=== PATIENT | female | born 1945 | race American Indian/Alaskan Native ===

== ENCOUNTER 2016-11-26 15:21 | Outpatient (CLI) | payer MEDICARE ==
--- NOTE | 2016-11-26 16:44 | Ultrasound Report ---
ULTRASOUND RENAL INDICATION: Renal mass. COMPARISON: None similar. FINDINGS: Renal sonography suggests mild to moderately increased renal cortical echogenicity. Grossly preserved contours. No hydronephrosis. Shadowing gallstones incidentally noted. RIGHT KIDNEY measures 13.9 x 5.8 x 5.3 cm with cortical thickness of 1.3 cm. Two dominant cysts measure 6.2 x 4.8 cm at the upper pole and 6.6 x 5.2 cm at the lower pole, images 21 and 26. LEFT KIDNEY estimated at 19.7 x 5.5 x 5.1 cm (including largest lower pole cyst measuring 9.9 x 8.2 x 11.2 cm, image 53) with cortical thickness of 0.6 cm. At least 3 other smaller upper to mid renal cortical cysts range between 1.3-3.6 cm. URINARY BLADDER suboptimally distended and assessed. CONCLUSION: Mild underlying medical renal disease, numerous bilateral renal cysts and cholelithiasis noted sonographically, as detailed above. Please also correlate clinically and with prior relevant imaging, if available. Thank you for the opportunity to participate in this patient's care.
== END 2016-11-26 15:22 | disposition home or self-care (01) ==
LOC: US 15:21
PROVIDERS: ATTEND Urology
DX: K80.20 Calculus of gallbladder without cholecystitis without obstruction (principal); N28.1 Cyst of kidney, acquired; N28.89 Other specified disorders of kidney and ureter; I12.9 Hypertensive chronic kidney disease with stage 1 through stage 4 chronic kidney disease, or unspecified chronic kidney disease; N18.9 Chronic kidney disease, unspecified; D63.1 Anemia in chronic kidney disease; E78.00 Pure hypercholesterolemia, unspecified
CPT/HCPCS: 76770

== ENCOUNTER 2017-01-12 09:37 | Outpatient (CLI) | payer MEDICARE ==
--- NOTE | 2017-01-12 14:04 | Magnetic Resonance Report ---
MRI of the abdomen without contrast. History: Renal mass. Procedure: A multisequence multiplanar study was performed without contrast. Findings: Image quality is decreased substantially by motion artifact on multiple sequences. The study is read with these limitations. There are tiny bilateral pleural effusions. The liver, spleen, and pancreas appear normal. There are multiple bilateral cystic masses within the kidneys, the largest of which is in the lower pole of the left kidney measuring 9.5 x 11.4 cm. Numerous smaller cystic masses are seen bilaterally. A complex cystic mass in the upper pole of the right kidney measuring 7.0 cm in diameter demonstrates hyperintense T1 signal most likely related to hemorrhagic cyst. There is a complex mixed signal mass in the lower pole of the right kidney. This mass measures approximately 7.1 x 5.6 cm and demonstrates mixed signal on all sequences. There is a peripheral lobulation medially. The renal veins are patent. There is no adenopathy within the retroperitoneum. Impression: 1. Indeterminate complex renal mass in the lower pole of the right kidney measuring 7.1 x 5.6 cm. A neoplastic process cannot be excluded. 2. Complex cystic mass in the upper pole of the right kidney demonstrates homogeneous signal and probably represents a hemorrhagic cyst. 3. Multiple bilateral simple renal cysts the largest of which is in the lower pole of the left kidney. 4. Trace bilateral pleural effusions.
== END 2017-01-12 09:38 | disposition home or self-care (01) ==
LOC: MRI 09:37
PROVIDERS: ATTEND Urology
DX: N28.1 Cyst of kidney, acquired (principal); N28.89 Other specified disorders of kidney and ureter; J90 Pleural effusion, not elsewhere classified; I10 Essential (primary) hypertension; E78.00 Pure hypercholesterolemia, unspecified; D64.9 Anemia, unspecified
CPT/HCPCS: 74181

== ENCOUNTER 2017-07-04 05:53 | Inpatient (IN) | payer MEDICARE ==
[2017-06-24 12:39] LABS: Hematocrit 37.2 % (30.3-42.9); Hemoglobin 11.9 gm/dl (10.1-14.3); Mean Corpuscular HGB Conc 32 % (30-34); Mean Corpuscular Hemoglobin 29 pg (28-32); Mean Corpuscular Volume 92 fl (79-97); Platelet Count 269 K/mm3 (140-440); Red Blood Count 4.06 M/mm3 (3.65-5.03); Red Cell Distribution Width 17.2 % (13.2-15.2)
[2017-06-24 12:43] LABS: INR 0.99 (0.87-1.13)
[2017-06-24 12:44] LABS: Partial Thromboplastin Time 32.6 Sec. (24.2-36.6)
[2017-06-24 12:55] LABS: Calcium 9.4 mg/dL (8.4-10.2)
--- NOTE | 2017-06-24 12:56 | Anesthesia Consultation ---
Anesthesia Consult and Med Hx Date of service: 07/04/17 - Airway Anesthetic Teeth Evaluation: Dentures ROM Head & Neck: Adequate Mental/Hyoid Distance: Adequate Mallampati Class: Class III Intubation Access Assessment: Probably Good - Pulmonary Exam CTA: Yes - Cardiac Exam Cardiac Exam: RRR - Pre-Operative Health Status ASA Pre-Surgery Classification: ASA3 Proposed Anesthetic Plan: General Nerve Block: patient consented for TAP/ epidural - Pulmonary Hx Smoking: No Hx Asthma: No SOB: No Hx Sleep Apnea: No (CHALO PRE SCREEN HIGH RISK) - Cardiovascular System Hx Hypertension: Yes (X 24 YRS) Hx Angina: No - Central Nervous System Hx Neuromuscular Disorder: No - Gastrointestinal Hx Gastroesophageal Reflux Disease: Yes - Endocrine Hx Renal Disease: Yes (CKD. no HD. right kidney cancer) Hx Insulin Dependent Diabetes: No Hx Hypothyroidism: Yes (s/p thyroidectomy) - Hematic Hx Anemia: Yes - Other Systems Hx Cancer: No Hx Obesity: Yes - Additional Comments Anesthesia Medical History Comments: h/o gout- arthritis. cardiac clearance appreciated
[2017-06-24 13:21] LABS: Basophils % (Manual) 0 % (0.0-1.8); RBC Morphology Normal; Total Cells Counted 100
[2017-06-24 13:22] LABS: Platelet Estimate Consistent w Auto
[~2017-07-04 05:53] MED LIST: NACL 0.9% 500 ML 500 ML IV NR
[2017-07-04] MEDS ORDERED: NACL 0.9% 1000 ML 1,000 ML ONE ×2 (06:32→10:35)
[2017-07-04] MEDS ORDERED: NACL BACTERIOSTATIC INFILTRATI ONE (06:32)
[2017-07-04] MEDS ORDERED: NACL 0.9% 1000 ML 1,000 ML IV SCH (07:00)
[2017-07-04] MEDS ORDERED: DIPRIVAN 10 MG/ML IV ONE (07:02)
[2017-07-04] MEDS ORDERED: SUBLIMAZE ONE ×2 (07:02→10:57)
[2017-07-04 07:11] LABS: Hematocrit 35.6 % (30.3-42.9); Hemoglobin 11.3 gm/dl (10.1-14.3); Mean Corpuscular HGB Conc 32 % (30-34); Mean Corpuscular Hemoglobin 29 pg (28-32); Mean Corpuscular Volume 91 fl (79-97); Platelet Count 252 K/mm3 (140-440); Red Cell Distribution Width 17.4 % (13.2-15.2)
[2017-07-04] MEDS ORDERED: VERSED ONE (07:25)
[2017-07-04] MEDS ORDERED: NEOSPORIN GU IR ONE ×2 (07:42→09:47)
[2017-07-04] MEDS ORDERED: TRANSDERM-SCOP TD ONE (07:46)
[2017-07-04] MEDS ORDERED: PEPCID IV NR (08:00)
[2017-07-04] MEDS ORDERED: VERSED IV NR (08:00)
[2017-07-04 08:11] LABS: Anisocytosis 1+; Basophils % (Manual) 0 % (0.0-1.8); Total Cells Counted 100
[2017-07-04 08:12] LABS: Platelet Estimate Cons; Smudge Cells Few
[2017-07-04] MEDS ORDERED: ACD-A 500 ML IV ONE (08:30)
[2017-07-04] MEDS ORDERED: ePHEDrine SULFATE ONE (08:32)
[2017-07-04] MEDS ORDERED: ANCEF/STERILE WATER 2 GM/20 ML IV NR (09:00)
[2017-07-04] MEDS ORDERED: NACL 0.9% IR ONE (09:48)
[2017-07-04] MEDS ORDERED: ALBURX 25% (ALBUMIN) IV ONE (10:08)
[2017-07-04] MEDS ORDERED: NEO SYNEPHRINE ONE (10:35)
[2017-07-04] MEDS ORDERED: NEO SYNEPHRINE/NS Syringe(OR USE) IV ONE (10:35)
[2017-07-04] MEDS ORDERED: LACTATED RINGERS 1,000 ML ONE (10:35)
[2017-07-04] MEDS ORDERED: XYLOCAINE MPF 2% ONE (10:35)
[2017-07-04] MEDS ORDERED: NACL 0.9% 100 ML ONE (10:35)
[2017-07-04] MEDS ORDERED: ZOFRAN ONE (10:35)
[2017-07-04] MEDS ORDERED: ROBINUL ONE (10:35)
[2017-07-04] MEDS ORDERED: BLOXIVERZ ONE (10:35)
[2017-07-04] MEDS ORDERED: QUELICIN ONE (10:35)
[2017-07-04] MEDS ORDERED: ZEMURON IV ONE (10:35)
[2017-07-04] MEDS ORDERED: NARCAN 0.4 MG/1 ML IV PRN ×2 (11:05→11:49)
[2017-07-04] MEDS ORDERED: NORCO 5/325 PO PRN (11:05)
--- NOTE | 2017-07-04 11:05 | Post Operative Note ---
Date of procedure: 07/04/17 Pre-op diagnosis: r renal mass Post-op diagnosis: same Findings: 8 cm mass Procedure: r radical nephrectomy Anesthesia: GETA, regional Surgeon: REYNOLD ISLAS Packaging Engineer: JEREMI HART Estimated blood loss: 50-100ml Pathology: list (r kidney) Specimen disposition: to lab Condition: stable Disposition: PACU
[2017-07-04] MEDS ORDERED: MARCAINE 0.25% INFILTRATI ONE (11:41)
[2017-07-04] MEDS ORDERED: DILAUDID ONE ×2 (11:46→12:38)
[2017-07-04] MEDS ORDERED: SODIUM CHLORIDE FLUSH SYRINGE 10 ML IV PRN (11:49)
[2017-07-04] MEDS ORDERED: ANCEF/NS 1 GM/50 ML 1 GM/50 ML BAG IV SCH (12:00)
--- NOTE | 2017-07-04 12:02 | Consultation ---
History of Present Illness - Reason for Consult Consult date: 07/04/17 chronic renal failure Requesting physician: REYNOLD ISLAS - History of Present Illness This is a 71 y/o female with PMH of chronic kidney disease (baseline stage unknown, but labs from 06/24/17 showed SCr of 2.9 with GFR of 19 and if close to her baseline would have her CKD Stage 4), right renal mass, bilateral simple renal cyst, cholelithiasis, hypertension, hypothyroidism, gout, hyperlipidemia who presented to [facility] for management of right renal mass. Dr Bassett (Urology) on board, s/p right radical nephrectomy today. Patient seen in recovery room, lethargic, drowsy, but arouses to verbal stimuli, oriented to person, place, and time. Last known SCr level was 2.9 on 06/24/17. We were consulted to evaluate this patient who has h/o CKD with right renal mass s/p right radical nephrectomy. Patient states she does have a manager action, sounded like she mentioned Dr Holly and when I stated his name she said yes. I called her daughter to confirm and she didn't know name of her manager action. We will see patient for now, evaluate if she is indeed followed by Dr Holly, and proceed from there. Past History Past Medical History: cancer, hypertension, hypothyroidism Medications and Allergies Allergies Allergy/AdvReac Type Severity Reaction Status Date / Time Sulfa (Sulfonamide Allergy BLISTERS , Verified 07/04/17 11:45 Antibiotics) REDNESS Home Medications Medication Instructions Recorded Confirmed Last Taken Type Allopurinol [Zyloprim] 100 mg PO DAILY 09/03/13 06/13/17 07/03/17 History Aspirin [Aspirin BABY CHEW TAB] 81 mg PO DAILY 09/03/13 07/04/17 7 Days Ago History ~06/27/17 Cholecalciferol (Vitamin D3) 2,000 unit PO DAILY 09/03/13 06/13/17 07/03/17 History [Vitamin D3] Lisinopril [Zestril] 40 mg PO DAILY 09/03/13 06/13/17 07/03/17 History Metoprolol [Lopressor TAB] 100 mg PO DAILY 09/03/13 06/13/17 07/04/17 05:00 History Simvastatin 20 mg PO DAILY 09/03/13 06/13/1707/03/18 History Sodium Bicarbonate 650 mg PO BID 09/03/13 06/13/17 07/03/17 History Furosemide [Lasix TAB] 40 mg PO DAILY 06/13/17 06/13/17 07/03/17 History Levothyroxine [Synthroid] 150 mcg PO QAM 06/13/17 06/13/17 07/04/17 05:00 History NIFEdipine [Nifedipine ER] 60 mg PO BID 06/13/17 06/13/17 07/04/17 05:00 History Doxercalciferol 2.5 mcg PO DAILY 07/04/17 07/04/17 07/03/17 History Ranitidine HCl [Zantac 150 MG TAB] 150 mg PO DAILY 07/04/17 07/04/17 07/03/17 History Active Meds: Active Medications Acetaminophen/Hydrocodone Bitart ([place] 5/325) 2 each PO Q6H PRN PRN Reason: Pain, Moderate (4-6) Cefazolin Sodium (Ancef/Sterile Water 2 Gm/20 Ml) 2 gm IV PREOP NR Stop: 07/04/17 21:00 Famotidine (Pepcid) 20 mg IV PREOP NR Stop: 07/04/17 21:00 Last Admin: 07/04/17 07:49 Dose: 20 mg Sodium Chloride (Nacl 0.9% 1000 Ml) 1,000 mls @ 42 mls/hr IV DIRECT CLARENCE Last Admin: 07/04/17 07:10 Dose: 42 mls/hr Dextrose/Sodium Chloride (D5/0.45ns) 1,000 mls @ 75 mls/hr IV DIRECT CLARENCE Cefazolin Sodium 1 gm/ Sodium (Chloride) 20 mls @ 20 mls/10 min IV Q8H CLARENCE Stop: 07/05/17 01:09 Fentanyl/Bupivacaine/Sodium Chlor (Fentanyl-Bupiv 2 Mcg/Ml-0.125%) 200 mcg in 100 mls @ 8 mls/hr EPIDURAL DIRECT CLARENCE PRN Reason: Protocol Midazolam HCl (Versed) 2 mg IV PREOP NR Stop: 07/04/17 23:59 Last Admin: 07/04/17 07:28 Dose: 2 mg Naloxone HCl (Narcan 0.4 Mg/1 Ml) 0.1 mg IV Q2MIN PRN PRN Reason: Res Rate </= 8 or 02 SAT < 92% Naloxone HCl (Narcan 0.4 Mg/1 Ml) 0.2 mg IV Q5M PRN PRN Reason: Res Rate </= 8 or 02 SAT < 92% Sodium Chloride (Sodium Chloride Flush Syringe 10 Ml) 10 ml IV PRN PRN PRN Reason: LINE FLUSH Review of Systems ROS unobtainable: due to mental status Exam - Vital Signs Vital signs: Vital Signs Temp Pulse Resp BP 98.8 F 60 18 150/84 06/24/17 12:26 06/24/17 12:26 06/24/17 12:26 06/24/17 12:26 - General Appearance General appearance: other (lethargic, no acute distress, seen in recovery room) EENT: ATNC Neck: Present: neck supple Respiratory: Other (Lung sounds decreased bilaterally, unlabored on oxygen face mask) Heart: regular, S1S2 Gastrointestinal: Present: hypoactive bowel sounds, tenderness Integumentary: warm and dry (Right abdominal/flank dressing in place) Neurologic: other (lethargic, drowsy, in recovery room, arouses to verbal stimuli, oriented to person, place, and time) Musculoskeletal: Present: other (no edema to both lower extremities) Results - Lab Results 07/04/17 12:08 06/24/17 12:28 Most recent lab results Calcium 9.4 mg/dL (8.4-10.2) 06/24/17 12:28 Assessment and Plan Right Renal Mass: -S/p Right Radical Nephrectomy procedure on 07/04/[address] Islas -On cefazolin -As per Urology History of Chronic Kidney Disease suspect Stage 4 (based on lab from 06/24/17): Right Renal Mass: -BMP pending today -Only available BMP was from 06/24/17 which showed SCr level of 2.9 with GFR of 19 -Obtain renal labs now, f/u labs and adjust renal management accordingly -Discussed with patient that we will have to monitor her renal function very closely, possible need for initiation of dialysis in the near future s/p right radical nephrectomy in setting of underlying CKD Stage 4 -> based on labs from , but will evaluate previous labs to determine exact baseline. Patient is drowsy s/p procedure, will discuss further renal management once patient is more alert and labs are resulted. Possibility patient may require HD during this hospitalization if renal function worsens. -Renally dose medications -Obtain urine lytes/studies -Has orders for D5W+ 0.45% NS infusion at 75 ml/hr, will f/u repeat labs, and adjust IV fluids if needed -S/p Right Radical Nephrectomy procedure on 07/04/17 -Obtain daily weight -Strict intake and output -Gonzalez Catheter: Yes -Renal plan discussed with Dr Mcrae -Continue supportive therapy Essential Hypertension: -Monitor blood pressures closely, blood pressure currently in low 100s systolic , hold off on anti-hypertensive medications for now -Home medication list shows patient takes lisinopril 40 mg once daily- This medication doesn't need to be restarted inpatient or outpatient at this time given increased risk of worsening renal function Hypothyroidism: -As per primary team
[2017-07-04 12:31] LABS: Basophils # (Auto) 0.1 K/mm3 (0.0-0.1); Basophils % (Auto) 0.5 % (0.0-1.8); Eosinophils # (Auto) 0.1 K/mm3 (0.0-0.4); Eosinophils % (Auto) 0.8 % (0.0-4.3); Hematocrit 30.4 % (30.3-42.9); Hemoglobin 9.8 gm/dl (10.1-14.3); Lymphocytes # (Auto) 3.6 K/mm3 (1.2-5.4); Lymphocytes % (Auto) 28.1 % (13.4-35.0); Mean Corpuscular HGB Conc 32 % (30-34); Mean Corpuscular Hemoglobin 30 pg (28-32); Mean Corpuscular Volume 92 fl (79-97); Monocytes # (Auto) 0.6 K/mm3 (0.0-0.8); Monocytes % (Auto) 4.7 % (0.0-7.3); Platelet Count 205 K/mm3 (140-440); Red Blood Count 3.31 M/mm3 (3.65-5.03); Red Cell Distribution Width 17.5 % (13.2-15.2)
[2017-07-04 12:54] LABS: Calcium 7.8 mg/dL (8.4-10.2)
[2017-07-04] MEDS: fentaNYL-BUPIV 2 MCG/ML-0.125% 200 MCG/100 ML BAG EPIDURAL SCH (12:55)
[2017-07-04 14:30] LABS: Creatinine,Urine 163.6 mg/dL (0.1-20.0)
--- NOTE | 2017-07-04 14:32 | Anesthesia Day of Surgery ---
Anesthesia Day of Surgery - Day of Surgery Patient Examined: Yes Patient H&P Reviewed: Yes Patient is NPO: Yes Beta Blockers: Yes
--- NOTE | 2017-07-04 14:32 | Post Anesthesia Evaluation ---
- Post Anesthesia Evaluation Patient Participated: Yes Airway Patent: Yes Stable Respiratory Function: Yes Nausea/Vomiting: No Temp > 96.8F: Yes Pain Manageable: Yes Adequeate Hydration: Yes Anesthesia Complications: No
[2017-07-04] MEDS: ceFAZolin 1 GM in NACL 0.9% 20 ML IV SCH (17:18)
[2017-07-04] MEDS: D5/0.45NS 1,000 ML IV SCH (18:05)
[2017-07-04] MEDS: DILAUDID IV PRN (19:20)
[2017-07-05] MEDS: fentaNYL-BUPIV 2 MCG/ML-0.125% 200 MCG/100 ML BAG EPIDURAL SCH ×2 (01:08→12:30)
[2017-07-05] MEDS: ceFAZolin 1 GM in NACL 0.9% 20 ML IV SCH (01:23)
[2017-07-05] MEDS ORDERED: ZOFRAN ONE (05:49)
[2017-07-05] MEDS ORDERED: ZOFRAN IV ONE (05:52)
[2017-07-05 05:58] LABS: Basophils % (Auto) 0.4 % (0.0-1.8); Eosinophils # (Auto) 0.1 K/mm3 (0.0-0.4); Eosinophils % (Auto) 0.4 % (0.0-4.3); Hematocrit 31.3 % (30.3-42.9); Hemoglobin 9.9 gm/dl (10.1-14.3); Lymphocytes # (Auto) 3.3 K/mm3 (1.2-5.4); Lymphocytes % (Auto) 27.1 % (13.4-35.0); Mean Corpuscular HGB Conc 32 % (30-34); Mean Corpuscular Hemoglobin 29 pg (28-32); Mean Corpuscular Volume 93 fl (79-97); Monocytes # (Auto) 0.8 K/mm3 (0.0-0.8); Monocytes % (Auto) 6.9 % (0.0-7.3); Platelet Count 199 K/mm3 (140-440); Red Blood Count 3.36 M/mm3 (3.65-5.03); Red Cell Distribution Width 17.8 % (13.2-15.2)
[2017-07-05 06:21] LABS: Calcium 7.9 mg/dL (8.4-10.2)
[2017-07-05] MEDS: D5/0.45NS 1,000 ML IV SCH ×2 (06:33→19:38)
--- NOTE | 2017-07-05 08:43 | Operative Report ---
PREOPERATIVE DIAGNOSES: Large right renal mass with chronic renal insufficiency, heart disease, multiple bilateral large renal cysts. POSTOPERATIVE DIAGNOSES: Large right renal mass with chronic renal insufficiency, heart disease, multiple bilateral large renal cysts. PROCEDURE: Right radical nephrectomy. SURGEON: John Agarwal M.D. and Dr. Grajeda. ANESTHESIA: General and epidural. FINDINGS: This is a woman with multiple medical problems, thyroid issues, gallstones, renal insufficiency, heart disease. She presents with an 8 cm renal mass. She was scheduled multiple times. She had canceled the surgery. She finally wanted the tumor out. She understood all the risks and even before surgery, I had a long talk with her daughter about the increased risks of dialysis postoperatively. They did not remember which plasma specialist they saw. I spoke to a few and she will see them postoperatively. Her left kidney is smaller, creatinine is 2.8-2.9 and there is a high likelihood she will need dialysis even without the nephrectomy, but certainly postoperatively that may very well be required. They understand they wanted tumor out. DESCRIPTION OF PROCEDURE: The patient was brought to the operating room and placed on the operating table. Following induction of anesthesia, both General and epidural right flank, which was marked up, prepped and draped in usual sterile fashion. A ____ incision was carried out, carried through the skin, superficial fatty tissue. She is also morbidly obese. Once we got down to the posterior lumbar muscles, these were divided. The external and internal oblique muscle and fascia were divided. Transversus was divided. Retroperitoneal was entered. We dissected the kidney off the psoas muscle, but there was a large amount of fatty tissue. There was a large cyst, especially in the right upper pole. We decided to open the peritoneum, placed a retractor and we were able to reflect the colon off the adherent cystic masses, especially superiorly. Once this was reflected, the ureter was identified, lower pole was freed. The large upper pole cyst was drained. There was some hemorrhagic fluid, which was drained. At this point, circumferential dissection was carried out. Again, it was adherent with some of these hemorrhagic cysts were noted. The lower pole mass which was a solid mass was freed and the vessels were ____ superior and medial. We kocherized the duodenum without difficulty. The duodenum was visualized and we dissected up to the renal vein. The artery was just above the vein, isolated, doubly tied, doubly clipped and the vein was divided and doubly tied. The patient tolerated the procedure well. Tisseel was used. Specimen was removed. Surgicel was used. Wound was copiously irrigated. Estimated blood loss is less 100 mL. At this point, a superficial perineal lining and transversus muscle was approximated with 0 Vicryl, fascia with two layers of looped PDS, posterior lumbar muscles with 0 Vicryl, and skin with clips. The patient tolerated the procedure well and brought to recovery room in stable condition. She will need follow up with Nephrology, possible dialysis and Cardiology. JOB# [id number] LILLY/ANJEL
--- NOTE | 2017-07-05 09:32 | Progress Note ---
Subjective Date of service: 07/05/17 Interval history: POD 1 from open nephrectomy. Doing well from pain management perspective. Epidural in place and patient has very little discomfort. Sitting comfortably in bed. Will continue epidural for now at least until patient is transfered out of critical care. Objective - Constitutional Vitals: Vital Signs - 12hr 07/04/17 07/04/17 07/04/17 22:00 22:30 23:00 Temperature 98.4 F 98.6 F Pulse Rate 58 L 59 L 61 Respiratory 12 15 13 Rate Blood Pressure 114/61 110/62 108/55 [Left] O2 Sat by Pulse 96 96 95 Oximetry 07/05/17 07/05/17 07/05/17 00:00 01:00 02:00 Temperature 98.7 F 98.4 F 98.9 F Pulse Rate 63 65 67 Respiratory 14 20 19 Rate Blood Pressure 103/60 112/56 124/61 [Left] O2 Sat by Pulse 95 95 95 Oximetry 07/05/17 07/05/17 07/05/17 03:00 04:00 05:00 Temperature 98.7 F 98.6 F 98.6 F Pulse Rate 68 75 70 Respiratory 19 20 20 Rate Blood Pressure 119/58 113/59 112/61 [Left] O2 Sat by Pulse 95 95 95 Oximetry 07/05/17 07/05/17 06:00 07:00 Temperature 98.5 F 98.9 F Pulse Rate 75 66 Respiratory 14 16 Rate Blood Pressure 106/49 113/58 [Left] O2 Sat by Pulse 95 95 Oximetry - Labs CBC & Chem 7: 07/05/17 05:10 07/05/17 05:10 Labs: Abnormal lab results 07/04/17 07/04/17 07/04/17 Range/Units 06:45 12:08 12:08 WBC 12.9 H (4.5-11.0) K/mm3 RBC 3.31 L (3.65-5.03) M/mm3 Hgb 9.8 L (10.1-14.3) gm/dl RDW 17.5 H (13.2-15.2) % Seg Neutrophils # 8.5 H (1.8-7.7) K/mm3 Carbon Dioxide 18 L (22-30) mmol/L BUN 43 H (7-17) mg/dL Creatinine 2.9 H (0.7-1.2) mg/dL Glucose 129 H (65-100) mg/dL Calcium 7.8 L (8.4-10.2) mg/dL Phosphorus (2.5-4.5) mg/dL PTH Intact (15-65) pg/mL Urine Creatinine (0.1-20.0) mg/dL Crossmatch See Detail 07/04/17 07/04/17 07/04/17 Range/Units 13:45 13:45 13:45 WBC (4.5-11.0) K/mm3 RBC (3.65-5.03) M/mm3 Hgb (10.1-14.3) gm/dl RDW (13.2-15.2) % Seg Neutrophils # (1.8-7.7) K/mm3 Carbon Dioxide (22-30) mmol/L BUN (7-17) mg/dL Creatinine (0.7-1.2) mg/dL Glucose (65-100) mg/dL Calcium (8.4-10.2) mg/dL Phosphorus 5.30 H (2.5-4.5) mg/dL PTH Intact 162.0 H (15-65) pg/mL Urine Creatinine 163.6 H (0.1-20.0) mg/dL Crossmatch 07/05/17 07/05/17 Range/Units 05:10 05:10 WBC 12.0 H (4.5-11.0) K/mm3 RBC 3.36 L (3.65-5.03) M/mm3 Hgb 9.9 L (10.1-14.3) gm/dl RDW 17.8 H (13.2-15.2) % Seg Neutrophils # 7.8 H (1.8-7.7) K/mm3 Carbon Dioxide 20 L (22-30) mmol/L BUN 44 H (7-17) mg/dL Creatinine 3.9 H (0.7-1.2) mg/dL Glucose (65-100) mg/dL Calcium 7.9 L (8.4-10.2) mg/dL Phosphorus 5.60 H (2.5-4.5) mg/dL PTH Intact (15-65) pg/mL Urine Creatinine (0.1-20.0) mg/dL Crossmatch
--- NOTE | 2017-07-05 09:52 | Progress Note ---
Assessment and Plan needs close monitering fluids and electrolytes may need dialysis discussed with renal acute care until medicine decides Subjective Date of service: 07/05/17 Principal diagnosis: renal mass Objective - Constitutional Vitals: Vital Signs - 12hr 07/04/17 07/04/17 07/04/17 22:00 22:30 23:00 Temperature 98.4 F 98.6 F Pulse Rate 58 L 59 L 61 Respiratory 12 15 13 Rate Blood Pressure 114/61 110/62 108/55 [Left] O2 Sat by Pulse 96 96 95 Oximetry 07/05/17 07/05/17 07/05/17 00:00 01:00 02:00 Temperature 98.7 F 98.4 F 98.9 F Pulse Rate 63 65 67 Respiratory 14 20 19 Rate Blood Pressure 103/60 112/56 124/61 [Left] O2 Sat by Pulse 95 95 95 Oximetry 07/05/17 07/05/17 07/05/17 03:00 04:00 05:00 Temperature 98.7 F 98.6 F 98.6 F Pulse Rate 68 75 70 Respiratory 19 20 20 Rate Blood Pressure 119/58 113/59 112/61 [Left] O2 Sat by Pulse 95 95 95 Oximetry 07/05/17 07/05/17 06:00 07:00 Temperature 98.5 F 98.9 F Pulse Rate 75 66 Respiratory 14 16 Rate Blood Pressure 106/49 113/58 [Left] O2 Sat by Pulse 95 95 Oximetry General appearance: Present: no acute distress - Neck Neck: supple - Respiratory Respiratory effort: normal - Gastrointestinal General gastrointestinal: Present: soft, non-tender - Labs CBC & Chem 7: 07/05/17 05:10 07/05/17 05:10 Labs: Abnormal lab results 07/04/17 07/04/17 07/04/17 Range/Units 06:45 12:08 12:08 WBC 12.9 H (4.5-11.0) K/mm3 RBC 3.31 L (3.65-5.03) M/mm3 Hgb 9.8 L (10.1-14.3) gm/dl RDW 17.5 H (13.2-15.2) % Seg Neutrophils # 8.5 H (1.8-7.7) K/mm3 Carbon Dioxide 18 L (22-30) mmol/L BUN 43 H (7-17) mg/dL Creatinine 2.9 H (0.7-1.2) mg/dL Glucose 129 H (65-100) mg/dL Calcium 7.8 L (8.4-10.2) mg/dL Phosphorus (2.5-4.5) mg/dL PTH Intact (15-65) pg/mL Urine Creatinine (0.1-20.0) mg/dL Crossmatch See Detail 07/04/17 07/04/17 07/04/17 Range/Units 13:45 13:45 13:45 WBC (4.5-11.0) K/mm3 RBC (3.65-5.03) M/mm3 Hgb (10.1-14.3) gm/dl RDW (13.2-15.2) % Seg Neutrophils # (1.8-7.7) K/mm3 Carbon Dioxide (22-30) mmol/L BUN (7-17) mg/dL Creatinine (0.7-1.2) mg/dL Glucose (65-100) mg/dL Calcium (8.4-10.2) mg/dL Phosphorus 5.30 H (2.5-4.5) mg/dL PTH Intact 162.0 H (15-65) pg/mL Urine Creatinine 163.6 H (0.1-20.0) mg/dL Crossmatch 07/05/17 07/05/17 Range/Units 05:10 05:10 WBC 12.0 H (4.5-11.0) K/mm3 RBC 3.36 L (3.65-5.03) M/mm3 Hgb 9.9 L (10.1-14.3) gm/dl RDW 17.8 H (13.2-15.2) % Seg Neutrophils # 7.8 H (1.8-7.7) K/mm3 Carbon Dioxide 20 L (22-30) mmol/L BUN 44 H (7-17) mg/dL Creatinine 3.9 H (0.7-1.2) mg/dL Glucose (65-100) mg/dL Calcium 7.9 L (8.4-10.2) mg/dL Phosphorus 5.60 H (2.5-4.5) mg/dL PTH Intact (15-65) pg/mL Urine Creatinine (0.1-20.0) mg/dL Crossmatch
--- NOTE | 2017-07-05 10:21 | Progress Note ---
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 - patient understands if Cr cont to rise she will require dialysis, if worsening eGFR tomorrow will consult vascular surgery for permcath placement -Renally dose medications -Obtain daily weight -Strict intake and output -Gonzalez Catheter: Yes Essential Hypertension: -will adjust meds as needed Hypothyroidism: -As per primary team Subjective Date of service: 07/05/17 Principal diagnosis: renal mass Interval history: feel better today but remains weak Objective - Vital Signs Vital signs: Vital Signs - 12hr 07/04/17 07/04/17 07/05/17 22:30 23:00 00:00 Temperature 98.6 F 98.7 F Pulse Rate 59 L 61 63 Respiratory 15 13 14 Rate Blood Pressure 110/62 108/55 103/60 [Left] O2 Sat by Pulse 96 95 95 Oximetry 07/05/17 07/05/17 07/05/17 01:00 02:00 03:00 Temperature 98.4 F 98.9 F 98.7 F Pulse Rate 65 67 68 Respiratory 20 19 19 Rate Blood Pressure 112/56 124/61 119/58 [Left] O2 Sat by Pulse 95 95 95 Oximetry 07/05/17 07/05/17 07/05/17 04:00 05:00 06:00 Temperature 98.6 F 98.6 F 98.5 F Pulse Rate 75 70 75 Respiratory 20 20 14 Rate Blood Pressure 113/59 112/61 106/49 [Left] O2 Sat by Pulse 95 95 95 Oximetry 07/05/17 07:00 Temperature 98.9 F Pulse Rate 66 Respiratory 16 Rate Blood Pressure 113/58 [Left] O2 Sat by Pulse 95 Oximetry - General Appearance General appearance: well-developed, well-nourished, obese EENT: ATNC, PERRL, mucous membranes moist Neck: no JVD, no carotid bruit Respiratory: Present: Clear to Ascultation, Normal Exam. Absent: Rales, Ronchi Cardiology: regular, S1S2 Gastrointestinal: normoactive bowel sounds, no tenderness, no distended, obese Integumentary: no rash, warm and dry Neurologic: no focal deficit, no asterixis, alert and oriented x3 Musculoskeletal: other (no edema in BLE) Psychiatric: mood/affect appropriate, cooperative - Lab 07/05/17 05:10 07/05/17 05:10 Most recent lab results Calcium 7.9 mg/dL (8.4-10.2) L 07/05/17 05:10 Phosphorus 5.60 mg/dL (2.5-4.5) H 07/05/17 05:10 Magnesium 1.90 mg/dL (1.7-2.3) 07/04/17 13:45 Urine Creatinine 163.6 mg/dL (0.1-20.0) H 07/04/17 13:45 Urine Sodium 37 mmol/L 07/04/17 13:45
[2017-07-05] MEDS: DILAUDID IV PRN ×2 (12:31→23:09)
--- NOTE | 2017-07-05 13:18 | Progress Note ---
Assessment and Plan Right Renal Mass s/p right radical nephrectomy Chronic kidney disease Hypertension Hypothyroidism Normal MPI 03/2017. EF 55-60% on echo 03/2017. Continue routine post-op management. Subjective Date of service: 07/05/17 Principal diagnosis: renal mass Interval history: patient is status post right radical rephrectomy 07/04. There are no reports of chest pain or shortness of breath postoperatively. BP has remained stable. Objective Vital Signs Temp Pulse Resp BP BP Pulse Ox 07/05/17 12:31 19 07/05/17 12:00 98.1 F 65 15 140/73 97 07/05/17 11:00 98.1 F 64 19 142/77 96 07/05/17 10:00 97.6 F 64 16 139/73 95 07/05/17 07:00 98.9 F 66 16 113/58 95 07/05/17 06:00 98.5 F 75 14 106/49 95 07/05/17 05:00 98.6 F 70 20 112/61 95 07/05/17 04:00 98.6 F 75 20 113/59 95 07/05/17 03:00 98.7 F 68 19 119/58 95 07/05/17 02:00 98.9 F 67 19 124/61 95 07/05/17 01:00 98.4 F 65 20 112/56 95 07/05/17 00:00 98.7 F 63 14 103/60 95 07/04/17 23:00 98.6 F 61 13 108/55 95 07/04/17 22:30 59 L 15 110/62 96 07/04/17 22:00 98.4 F 58 L 12 114/61 96 07/04/17 21:00 97.2 F L 58 L 12 95 07/04/17 20:00 97.0 F L 61 12 95 07/04/17 19:50 15 07/04/17 19:20 18 07/04/17 19:00 98.1 F 61 15 96 07/04/17 18:00 97.6 F 68 16 92 07/04/17 13:30 55 L 16 114/70 97 - Physical Examination General: No Apparent Distress HEENT: Positive: PERRL Neck: Positive: neck supple Cardiac: Positive: Reg Rate and Rhythm - Labs and Meds CBC 07/05/17 Range/Units 05:10 WBC 12.0 H (4.5-11.0) K/mm3 RBC 3.36 L (3.65-5.03) M/mm3 Hgb 9.9 L (10.1-14.3) gm/dl Hct 31.3 (30.3-42.9) % Plt Count 199 (140-440) K/mm3 Lymph # 3.3 (1.2-5.4) K/mm3 [place] # 0.8 (0.0-0.8) K/mm3 Eos # 0.1 (0.0-0.4) K/mm3 Baso # 0.0 (0.0-0.1) K/mm3 Comprehensive Metabolic Panel 07/05/17 Range/Units 05:10 Sodium 139 (137-145) mmol/L Potassium 4.4 (3.6-5.0) mmol/L Chloride 105.8 (98-107) mmol/L Carbon Dioxide 20 L (22-30) mmol/L BUN 44 H (7-17) mg/dL Creatinine 3.9 H (0.7-1.2) mg/dL Glucose 99 (65-100) mg/dL Calcium 7.9 L (8.4-10.2) mg/dL
--- NOTE | 2017-07-05 16:25 | Consultation ---
History of Present Illness Consult date: 07/05/17 Requesting physician: REYNOLD ISLAS Reason for consult: other (s/p nephrectomy, SADIA on CKD, post op monitoring in the critical care unit) History of present illness: Ms Qureshi, is a 71 year old woman, s/p right radical nephrectomy for a renal mass. She is post op, with worsening renal function. I have been asked to facilitate her critical care, post operatively, for close monitoring of hemodynamics and electrolyte profile. She is at risk of decompensation and may require renal replacement therapy. Patient was seen and examined. Vitals, labs, medications, chart notes reviewed. She is currently awake on 2L/min nasal cannula. Past History Past Medical History: cancer, hypertension, hypothyroidism Past Surgical History: hysterectomy, Other (thyroid surgery) Social history: lives with family, full code. denies: smoking, alcohol abuse, prescription drug abuse Family history: no significant family history Medications and Allergies Allergies Allergy/AdvReac Type Severity Reaction Status Date / Time Sulfa (Sulfonamide Allergy BLISTERS , Verified 07/04/17 11:45 Antibiotics) REDNESS Home Medications Medication Instructions Recorded Confirmed Last Taken Type Allopurinol [Zyloprim] 100 mg PO DAILY 09/03/13 06/13/17 07/03/17 History Aspirin [Aspirin BABY CHEW TAB] 81 mg PO DAILY 09/03/13 07/04/17 7 Days Ago History ~06/27/17 Cholecalciferol (Vitamin D3) 2,000 unit PO DAILY 09/03/13 06/13/17 07/03/17 History [Vitamin D3] Lisinopril [Zestril] 40 mg PO DAILY 09/03/13 06/13/17 07/03/17 History Metoprolol [Lopressor TAB] 100 mg PO DAILY 09/03/13 06/13/17 07/04/17 05:00 History Simvastatin 20 mg PO DAILY 09/03/13 06/13/17 07/03/17 History Sodium Bicarbonate 650 mg PO BID 09/03/13 06/13/17 07/03/17 History Furosemide [Lasix TAB] 40 mg PO DAILY 06/13/17 06/13/17 07/03/17 History Levothyroxine [Synthroid] 150 mcg PO QAM 06/13/17 06/13/17 07/04/17 05:00 History NIFEdipine [Nifedipine ER] 60 mg PO BID 06/13/17 06/13/17 07/04/17 05:00 History Doxercalciferol 2.5 mcg PO DAILY 07/04/17 07/04/17 07/03/17 History Ranitidine HCl [Zantac 150 MG TAB] 150 mg PO DAILY 07/04/17 07/04/17 07/03/17 History Active Meds: Active Medications Acetaminophen/Hydrocodone Bitart ([place] 5/325) 2 each PO Q6H PRN PRN Reason: Pain, Moderate (4-6) Hydromorphone HCl (Dilaudid) 0.5 mg IV Q10M PRN PRN Reason: Pain , Severe (7-10) Last Admin: 07/05/17 12:31 Dose: 0.5 mg Sodium Chloride (Nacl 0.9% 1000 Ml) 1,000 mls @ 42 mls/hr IV DIRECT CLARENCE Last Admin: 07/04/17 07:10 Dose: 42 mls/hr Dextrose/Sodium Chloride (D5/0.45ns) 1,000 mls @ 75 mls/hr IV DIRECT CLARENCE Last Admin: 07/05/17 06:33 Dose: 75 mls/hr Fentanyl/Bupivacaine/Sodium Chlor (Fentanyl-Bupiv 2 Mcg/Ml-0.125%) 200 mcg in 100 mls @ 8 mls/hr EPIDURAL DIRECT [facility] PRN Reason: Protocol Last Admin: 07/05/17 12:30 Dose: 8 mls/hr Naloxone HCl (Narcan 0.4 Mg/1 Ml) 0.2 mg IV Q5M PRN PRN Reason: Res Rate </= 8 or 02 SAT < 92% Sodium Chloride (Sodium Chloride Flush Syringe 10 Ml) 10 ml IV PRN PRN PRN Reason: LINE FLUSH Review of Systems Constitutional: weakness, malaise, no weight loss, no weight gain, no fever, no chills, no night sweats, no fatigue Ears, nose, mouth and throat: no ear pain, no ear discharge, no decreased hearing, no nose pain, no sore throat, no swelling in mouth, no swelling in throat Breasts: deferred Cardiovascular: no chest pain, no palpitations, no rapid/irregular heart beat, no lightheadedness, no shortness of breath, no claudication Respiratory: no cough, no hemoptysis, no respiratory infections, no home oxygen Gastrointestinal: no abdominal pain, no vomiting, no change in bowel habits, no melena, no loss of appetite, no heartburn, no dyspepsia/bloating Genitourinary Female: no dyspareunia, no stress incontinence Rectal: no pain, no incontinence, no bleeding Musculoskeletal: no neck pain, no low back pain, no leg numbness/tingling, no limitation of motion Integumentary: pruritis Neurological: no weakness, no parathesias, no numbness, no seizures, no syncope , no ataxia, no lack of coordination Endocrine: no cold intolerance, no heat intolerance, no polyphagia, no polydipsia, no proptosis, no deepening of the voice Hematologic/Lymphatic: easy bruising, no lymphadenopathy, no lymphedema Allergic/Immunologic: no urticaria, no allergic rhinitis, no anaphylaxis, no seasonal allergies Physical Examination Vital signs: Vital Signs Temp Pulse Resp BP 98.8 F 60 18 150/84 06/24/17 12:26 06/24/17 12:26 06/24/17 12:26 06/24/17 12:26 General appearance: no acute distress, other (Atraumatic, normocephalic, obese, epidural) Eyes: non-icteric ENT: oropharynx moist, other (mallampatti score 4/4) Neck: supple, no lymphadenopathy, no JVD, other Effort: normal Ascultation: Bilateral: diminished breath sounds Cardiovascular: regular rate and rhythm, other (no murmurs, no gallops) Gastrointestinal: normoactive bowel sounds, soft, non-tender, non-distended Integumentary: normal Extremities: no cyanosis, no edema, pink and warm, pulses normal, no ischemia or petechiae Musculoskeletal: no deformities normal mental status, non-focal exam Results - Laboratory Findings CBC and BMP: 07/05/17 05:10 07/05/17 05:10 PT/INR, D-dimer PT 13.6 Sec. (12.2-14.9) 06/24/17 12:28 INR 0.99 (0.87-1.13) 06/24/17 12:28 Abnormal lab findings: Abnormal Labs 06/24/17 06/24/17 07/04/17 12:28 12:28 06:45 WBC 12.0 H RBC Hgb RDW 17.2 H Lymphocytes % (Manual) 48.0 H Seg Neutrophils # Lymphocytes # (Manual) 5.8 H Eosinophils # (Manual) 0.5 H Carbon Dioxide BUN 45 H Creatinine 2.9 H Glucose Calcium Phosphorus PTH Intact Urine Creatinine Crossmatch See Detail 07/04/17 07/04/17 07/04/17 06:45 12:08 12:08 WBC 15.4 H 12.9 H RBC 3.31 L Hgb 9.8 L RDW 17.4 H 17.5 H Lymphocytes % (Manual) 40.0 H Seg Neutrophils # 8.5 H Lymphocytes # (Manual) 6.2 H Eosinophils # (Manual) 0.6 H Carbon Dioxide 18 L BUN 43 H Creatinine 2.9 H Glucose 129 H Calcium 7.8 L Phosphorus PTH Intact Urine Creatinine Crossmatch 07/04/17 07/04/17 07/04/17 13:45 13:45 13:45 WBC RBC Hgb RDW Lymphocytes % (Manual) Seg Neutrophils # Lymphocytes # (Manual) Eosinophils # (Manual) Carbon Dioxide BUN Creatinine Glucose Calcium Phosphorus 5.30 H PTH Intact 162.0 H Urine Creatinine 163.6 H Crossmatch 07/05/17 07/05/17 05:10 05:10 WBC 12.0 H RBC 3.36 L Hgb 9.9 L RDW 17.8 H Lymphocytes % (Manual) Seg Neutrophils # 7.8 H Lymphocytes # (Manual) Eosinophils # (Manual) Carbon Dioxide 20 L BUN 44 H Creatinine 3.9 H Glucose Calcium 7.9 L Phosphorus 5.60 H PTH Intact Urine Creatinine Crossmatch Assessment and Plan Renal mass s/p radical right nephrectomy HTN SADIA on CKD Morbid obesity with probable undiagnosed sleep apnea h/o thyroid surgery Hypothyroidism Monitor electrolytes, renal function and hemodynamics closely Admit ICU for close monitoring for the next 24-48 hours Analgesia, has epidural (fentanyl ) Renal diet Monitor blood pressure, has been well controlled. Resume antihypertensives if SBp>150 Resume thyroid replacement therapy Gonzalez catheter for accurate intake and output monitoring Renal consult Monitor for nocturnal hypoxemia Sleep apnea precautions SCDs for VTE prophylaxis Avoid nephrotoxics PT/OT to evaluate and treat Early ambulation Supplemental oxygen to keep O2 sats>90% Incentive spirometry Critical care time in (mins) excluding proc time.: 35 Critical care attestation.: If time is entered above; I have spent that time in minutes in the direct care of this critically ill patient, excluding procedure time.
[2017-07-06 05:54] LABS: Basophils % (Auto) 0.1 % (0.0-1.8); Eosinophils # (Auto) 0.3 K/mm3 (0.0-0.4); Hematocrit 29.8 % (30.3-42.9); Hemoglobin 9.5 gm/dl (10.1-14.3); Lymphocytes # (Auto) 3.9 K/mm3 (1.2-5.4); Lymphocytes % (Auto) 30.7 % (13.4-35.0); Mean Corpuscular HGB Conc 32 % (30-34); Mean Corpuscular Hemoglobin 29 pg (28-32); Mean Corpuscular Volume 92 fl (79-97); Monocytes # (Auto) 1.2 K/mm3 (0.0-0.8); Monocytes % (Auto) 9.3 % (0.0-7.3); Platelet Count 182 K/mm3 (140-440); Red Blood Count 3.23 M/mm3 (3.65-5.03); Red Cell Distribution Width 17.1 % (13.2-15.2)
[2017-07-06 05:57] LABS: Calcium 7.9 mg/dL (8.4-10.2)
[2017-07-06] MEDS: SYNTHROID PO SCH (06:19)
[2017-07-06] MEDS: D5/0.45NS 1,000 ML IV SCH (09:00)
--- NOTE | 2017-07-06 09:10 | Progress Note ---
Subjective Date of service: 07/06/17 Principal diagnosis: renal mass Interval history: POD day 2 from nephrectomy. Doing well this morning from pain management standpoint. Sitting in bed comfortably. Epidural still infusing and providing good pain relief. Pt scheduled to have vas cath placed today for HD. We will need to remove epidural prior to initiation of dialysis due to heparinization. Will plan on removal of epidural when they are ready to take her to place vas cath. Spoke to Dr. Brewster who plans to do vas cath this afternoon since she ate breakfast this morning. Objective - Constitutional Vitals: Vital Signs - 12hr 07/05/17 07/05/17 07/06/17 22:00 23:09 00:00 Temperature 98.1 F 98.1 F 98.2 F Pulse Rate 70 78 68 Respiratory 18 19 16 Rate Blood Pressure 132/62 136/68 112/55 [Left] O2 Sat by Pulse 97 96 95 Oximetry 07/06/17 07/06/17 07/06/17 00:43 00:51 03:21 Temperature 99.1 F 99.2 F Pulse Rate 72 79 Respiratory 18 20 Rate Blood Pressure 133/76 138/71 [Left] O2 Sat by Pulse 95 95 96 Oximetry 07/06/17 06:39 Temperature 9.4 F L Pulse Rate 75 Respiratory 18 Rate Blood Pressure 166/77 [Left] O2 Sat by Pulse 98 Oximetry - Labs CBC & Chem 7: 07/06/17 05:23 07/06/17 05:23 Labs: Abnormal lab results 07/06/17 07/06/17 Range/Units 05:23 05:23 WBC 12.7 H (4.5-11.0) K/mm3 RBC 3.23 L (3.65-5.03) M/mm3 Hgb 9.5 L (10.1-14.3) gm/dl Hct 29.8 L (30.3-42.9) % RDW 17.1 H (13.2-15.2) % [place] % (Auto) 9.3 H (0.0-7.3) % [place] # 1.2 H (0.0-0.8) K/mm3 Carbon Dioxide 21 L (22-30) mmol/L BUN 43 H (7-17) mg/dL Creatinine 4.4 H (0.7-1.2) mg/dL Calcium 7.9 L (8.4-10.2) mg/dL Phosphorus 5.20 H (2.5-4.5) mg/dL
--- NOTE | 2017-07-06 10:40 | Progress Note ---
Assessment and Plan Renal mass s/p radical right nephrectomy HTN SADIA on CKD Morbid obesity with probable undiagnosed sleep apnea h/o thyroid surgery Hypothyroidism - For vascath placement then dialysis - continue to monitor electrolytes, renal function and hemodynamics closely - discontinue epidural per anesthesiologist - continue renal diet - Antihypertensives if SBP >150 - continue thyroid replacement therapy - Gonzalez catheter for accurate intake and output monitoring - Azotemia per nephrology otherwise - continue to monitor for nocturnal hypoxemia - Sleep apnea precautions - get baseline ABG re: hypercapnia / need to deploy BIPAP - SCDs for VTE prophylaxis - Avoid nephrotoxic agents - PT/OT to evaluate and treat - continue early ambulation interventions - continue supplemental oxygen to keep O2 sats>90% - continue incentive spirometry - GI prophylaxis - continue other care per attending / other consultants - get Hospitalist consult to manage chronic meds and on floor ...she is doing better and hemodynamically stable; she is about to begin hemodialysis and with her co-morbidities is best watched on a monitored bed ...OK to transfer to telemetry ...35' Subjective Date of service: 07/06/17 Principal diagnosis: Renal Mass s/p Radical Right Nephrectomy; SADIA now on Dialysis; Obesity Interval history: Patient seen today for: Renal Mass s/p Radical Right Nephrectomy; SADIA now on Dialysis; Acute hypoxemic Resp Failure; Obesity Seen and examined at bedside; 24 hour events reviewed; nursing and respiratory care staff consulted; no adverse overnight events reported to me; resting peacefully; no vasopressors; to begin dialysis today; denies acute chest pains or increased SOB; No N/V/F/C; on 2L NC Objective Vital Signs - 12hr 07/05/17 07/06/17 07/06/17 23:09 00:00 00:43 Temperature 98.1 F 98.2 F Pulse Rate 78 68 Respiratory 19 16 Rate Blood Pressure 136/68 112/55 [Left] O2 Sat by Pulse 96 95 95 Oximetry 07/06/17 07/06/17 07/06/17 00:51 03:21 06:39 Temperature 99.1 F 99.2 F 9.4 F L Pulse Rate 72 79 75 Respiratory 18 20 18 Rate Blood Pressure 133/76 138/71 166/77 [Left] O2 Sat by Pulse 95 96 98 Oximetry Constitutional: no acute distress, alert, other (Atraumatic, normocephalic, obese, epidural) Eyes: non-icteric ENT: oropharynx moist, other (mallampatti score 4/4) Neck: supple, no lymphadenopathy, no JVD, other (no thyromegaly) Effort: normal Ascultation: Bilateral: clear, diminished breath sounds Percussion: Bilateral: not dull Cardiovascular: regular rate and rhythm, other (no murmurs, no gallops) Gastrointestinal: normoactive bowel sounds, soft, non-tender, non-distended, other (no palpable HSM) Integumentary: normal Extremities: no cyanosis, no edema, pink and warm, pulses normal, no ischemia or petechiae Neurologic: normal mental status, non-focal exam, pupils equal and round, motor strength normal and Psychiatric: mood appropriate, affect normal CBC and BMP: 07/06/17 05:23 07/06/17 05:23 ABG, PT/INR, D-dimer: PT/INR, D-dimer PT 13.6 Sec. (12.2-14.9) 06/24/17 12:28 INR 0.99 (0.87-1.13) 06/24/17 12:28 Abnormal lab findings: Abnormal Labs 06/24/17 06/24/17 07/04/17 12:28 12:28 06:45 WBC 12.0 H RBC Hgb Hct RDW 17.2 H [place] % (Auto) [place] # Lymphocytes % (Manual) 48.0 H Seg Neutrophils # Lymphocytes # (Manual) 5.8 H Eosinophils # (Manual) 0.5 H Carbon Dioxide BUN 45 H Creatinine 2.9 H Glucose Calcium Phosphorus PTH Intact Urine Creatinine Crossmatch See Detail 07/04/17 07/04/17 07/04/17 06:45 12:08 12:08 WBC 15.4 H 12.9 H RBC 3.31 L Hgb 9.8 L Hct RDW 17.4 H 17.5 H [place] % (Auto) [place] # Lymphocytes % (Manual) 40.0 H Seg Neutrophils # 8.5 H Lymphocytes # (Manual) 6.2 H Eosinophils # (Manual) 0.6 H Carbon Dioxide 18 L BUN 43 H Creatinine 2.9 H Glucose 129 H Calcium 7.8 L Phosphorus PTH Intact Urine Creatinine Crossmatch 07/04/17 07/04/17 07/04/17 13:45 13:45 13:45 WBC RBC Hgb Hct RDW [place] % (Auto) [place] # Lymphocytes % (Manual) Seg Neutrophils # Lymphocytes # (Manual) Eosinophils # (Manual) Carbon Dioxide BUN Creatinine Glucose Calcium Phosphorus 5.30 H PTH Intact 162.0 H Urine Creatinine 163.6 H Crossmatch 07/05/17 07/05/17 07/06/17 05:10 05:10 05:23 WBC 12.0 H 12.7 H RBC 3.36 L 3.23 L Hgb 9.9 L 9.5 L Hct 29.8 L RDW 17.8 H 17.1 H [place] % (Auto) 9.3 H [place] # 1.2 H Lymphocytes % (Manual) Seg Neutrophils # 7.8 H Lymphocytes # (Manual) Eosinophils # (Manual) Carbon Dioxide 20 L BUN 44 H Creatinine 3.9 H Glucose Calcium 7.9 L Phosphorus 5.60 H PTH Intact Urine Creatinine Crossmatch 07/06/17 05:23 WBC RBC Hgb Hct RDW [place] % (Auto) [place] # Lymphocytes % (Manual) Seg Neutrophils # Lymphocytes # (Manual) Eosinophils # (Manual) Carbon Dioxide 21 L BUN 43 H Creatinine 4.4 H Glucose Calcium 7.9 L Phosphorus 5.20 H PTH Intact Urine Creatinine Crossmatch CT scan - chest: image reviewed
--- NOTE | 2017-07-06 11:24 | Progress Note ---
Subjective Date of service: 07/06/17 Principal diagnosis: renal mass Interval history: Patient going to cardiac cath lab manager now for vas cath placement. Epidural removed. Tip intact. No bleeding or discharge from epidural site. Objective - Constitutional Vitals: Vital Signs - 12hr 07/06/17 07/06/17 07/06/17 00:00 00:43 00:51 Temperature 98.2 F 99.1 F Pulse Rate 68 72 Respiratory 16 18 Rate Blood Pressure 112/55 133/76 [Left] O2 Sat by Pulse 95 95 95 Oximetry 07/06/17 07/06/17 07/06/17 03:21 06:39 08:30 Temperature 99.2 F 9.4 F L 98.7 F Pulse Rate 79 75 78 Respiratory 20 18 16 Rate Blood Pressure 138/71 166/77 150/79 [Left] O2 Sat by Pulse 96 98 98 Oximetry 07/06/17 07/06/17 10:30 11:00 Temperature 98.9 F Pulse Rate 75 75 Respiratory 16 20 Rate Blood Pressure 144/64 149/68 [Left] O2 Sat by Pulse 98 98 Oximetry - Labs CBC & Chem 7: 07/06/17 05:23 07/06/17 05:23 Labs: Abnormal lab results 07/06/17 07/06/17 Range/Units 05:23 05:23 WBC 12.7 H (4.5-11.0) K/mm3 RBC 3.23 L (3.65-5.03) M/mm3 Hgb 9.5 L (10.1-14.3) gm/dl Hct 29.8 L (30.3-42.9) % RDW 17.1 H (13.2-15.2) % [place] % (Auto) 9.3 H (0.0-7.3) % [place] # 1.2 H (0.0-0.8) K/mm3 Carbon Dioxide 21 L (22-30) mmol/L BUN 43 H (7-17) mg/dL Creatinine 4.4 H (0.7-1.2) mg/dL Calcium 7.9 L (8.4-10.2) mg/dL Phosphorus 5.20 H (2.5-4.5) mg/dL
[2017-07-06] MEDS ORDERED: ANCEF/STERILE WATER 2 GM/20 ML 0 GM/0 ML SYRINGE IV ONE (11:57)
[2017-07-06] MEDS ORDERED: HEPARIN 10,000 UNITS/10 ML ONE (11:57)
[2017-07-06] MEDS ORDERED: HEPARIN/NS 5000 UNIT/500ML(CATH LAB) 0 ML IR ONE (11:57)
[2017-07-06] MEDS ORDERED: NACL 0.9% 500 ML IR ONE (12:13)
[2017-07-06] MEDS: SUBLIMAZE ONE ×2 (12:26→12:35)
[2017-07-06] MEDS: VERSED ONE (12:26)
[2017-07-06] MEDS: XYLOCAINE 2% INFILTRATI ONE ×2 (12:27→12:35)
--- NOTE | 2017-07-06 12:42 | History and Physical Report ---
History of Present Illness Date of admission: 07/04/17 05:53 Chief complaint: I had surgery History of present illness: 71 YO Female with Obesity, Right RCC S/P Right Radical Nephrectomy, HTN, GERD admitted to hospitalist service s/p Permacath placement. Pt seen and evaluated in r and d lab technician recovery. Pt denies fever, chills, CP, Palpitations, NVD, productive cough, or recent ill contacts. Pt found to have accelerated hypertension, as well as renal failure and probable need for urgent dialysis. Pt admitted to telemetry. Past History Past Medical History: cancer, hypertension, hypothyroidism, other (obesity) Past Surgical History: hysterectomy, Other (thyroid surgery, Right Nephrectomy, ) Social history: single, lives with family, full code. denies: smoking, alcohol abuse, prescription drug abuse Family history: no significant family history Medications and Allergies Allergies Allergy/AdvReac Type Severity Reaction Status Date / Time Sulfa (Sulfonamide Allergy BLISTERS , Verified 07/04/17 11:45 Antibiotics) REDNESS Home Medications Medication Instructions Recorded Confirmed Last Taken Type Allopurinol [Zyloprim] 100 mg PO DAILY 09/03/13 06/13/17 07/03/17 History Aspirin [Aspirin BABY CHEW TAB] 81 mg PO DAILY 09/03/13 07/04/17 7 Days Ago History ~06/27/17 Cholecalciferol (Vitamin D3) 2,000 unit PO DAILY 09/03/13 06/13/17 07/03/17 History [Vitamin D3] Lisinopril [Zestril] 40 mg PO DAILY 09/03/13 06/13/17 07/03/17 History Metoprolol [Lopressor TAB] 100 mg PO DAILY 09/03/13 06/13/17 07/04/17 05:00 History Simvastatin 20 mg PO DAILY 09/03/13 06/13/17 07/03/17 History Sodium Bicarbonate 650 mg PO BID 09/03/13 06/13/17 07/03/17 History Furosemide [Lasix TAB] 40 mg PO DAILY 06/13/17 06/13/17 07/03/17 History Levothyroxine [Synthroid] 150 mcg PO QAM 06/13/17 06/13/17 07/04/17 05:00 History NIFEdipine [Nifedipine ER] 60 mg PO BID 06/13/17 06/13/17 07/04/17 05:00 History Doxercalciferol 2.5 mcg PO DAILY 07/04/17 07/04/17 07/03/17 History Ranitidine HCl [Zantac 150 MG TAB] 150 mg PO DAILY 07/04/17 07/04/17 07/03/17 History Active Meds: Active Medications Acetaminophen/Hydrocodone Bitart ([place] 5/325) 2 each PO Q6H PRN PRN Reason: Pain, Moderate (4-6) Hydromorphone HCl (Dilaudid) 0.5 mg IV Q10M PRN PRN Reason: Pain , Severe (7-10) Last Admin: 07/05/17 23:09 Dose: 0.5 mg Sodium Chloride (Nacl 0.9% 1000 Ml) 1,000 mls @ 42 mls/hr IV DIRECT CLARENCE Last Admin: 07/04/17 07:10 Dose: 42 mls/hr Dextrose/Sodium Chloride (D5/0.45ns) 1,000 mls @ 75 mls/hr IV DIRECT CLARENCE Last Admin: 07/06/17 09:00 Dose: 75 mls/hr Fentanyl/Bupivacaine/Sodium Chlor (Fentanyl-Bupiv 2 Mcg/Ml-0.125%) 200 mcg in 100 mls @ 8 mls/hr EPIDURAL DIRECT [facility] PRN Reason: Protocol Last Admin: 07/05/17 12:30 Dose: 8 mls/hr Levothyroxine Sodium (Synthroid) 150 mcg PO DAILY@0600 [facility] Last Admin: 07/06/17 06:19 Dose: 150 mcg Naloxone HCl (Narcan 0.4 Mg/1 Ml) 0.2 mg IV Q5M PRN PRN Reason: Res Rate </= 8 or 02 SAT < 92% Sodium Chloride (Sodium Chloride Flush Syringe 10 Ml) 10 ml IV PRN PRN PRN Reason: LINE FLUSH Review of Systems Constitutional: no weight loss, no weight gain, no fever, no chills Ears, nose, mouth and throat: no ear pain, no ear discharge, no tinnitis, no decreased hearing, no nose pain, no nasal congestion Breasts: no change in shape, no swelling, no mass Cardiovascular: no chest pain, no orthopnea, no palpitations, no rapid/ irregular heart beat, no edema, no syncope Respiratory: no cough, no cough with sputum, no excessive sputum, no hemoptysis , no shortness of breath Gastrointestinal: no nausea, no vomiting, no diarrhea Genitourinary Female: no pelvic pain, no flank pain, no menorrhagia Rectal: no pain, no incontinence, no bleeding Musculoskeletal: no neck stiffness, no neck pain, no shooting arm pain, no arm numbness/tingling, no low back pain, no shooting leg pain Integumentary: no rash, no pruritis, no redness, no sores, no wounds, no jaundice Neurological: no transient paralysis, no paralysis, no weakness, no parathesias , no numbness, no tingling, no seizures Psychiatric: no anxiety, no memory loss, no change in sleep habits, no sleep disturbances, no insomnia, no hypersomnia, no change in appetite Endocrine: no cold intolerance, no heat intolerance, no polyphagia, no excessive thirst, no polydipsia, no polyuria, no nocturia Hematologic/Lymphatic: no easy bruising, no easy bleeding, no lymphadenopathy, no lymphedema Allergic/Immunologic: no urticaria, no allergic rhinitis Exam - Constitutional Vitals: Temp Pulse Resp BP Pulse Ox 98.9 F 75 20 149/68 98 07/06/17 10:30 07/06/17 11:00 07/06/17 11:00 07/06/17 11:00 07/06/17 11:00 General appearance: Present: no acute distress, obese - EENT Eyes: Present: PERRL ENT: hearing intact, clear oral mucosa - Neck Neck: Present: supple, normal ROM - Respiratory Respiratory effort: normal Respiratory: bilateral: CTA - Cardiovascular Heart Sounds: Present: S1 & S2. Absent: rub, click - Extremities Extremities: pulses symmetrical, No edema Peripheral Pulses: within normal limits - Abdominal General gastrointestinal: Present: soft, non-tender, non-distended, normal bowel sounds Female genitourinary: Present: normal - Integumentary Integumentary: Present: clear, warm, dry - Musculoskeletal Musculoskeletal: gait normal, strength equal bilaterally - Psychiatric Psychiatric: appropriate mood/affect, intact judgment & insight - Neurologic Neurologic: CNII-XII intact, moves all extremities Results - Labs CBC & Chem 7: 07/06/17 05:23 07/06/17 05:23 Labs: Abnormal lab results 07/06/17 07/06/17 Range/Units 05:23 05:23 WBC 12.7 H (4.5-11.0) K/mm3 RBC 3.23 L (3.65-5.03) M/mm3 Hgb 9.5 L (10.1-14.3) gm/dl Hct 29.8 L (30.3-42.9) % RDW 17.1 H (13.2-15.2) % [place] % (Auto) 9.3 H (0.0-7.3) % [place] # 1.2 H (0.0-0.8) K/mm3 Carbon Dioxide 21 L (22-30) mmol/L BUN 43 H (7-17) mg/dL Creatinine 4.4 H (0.7-1.2) mg/dL Calcium 7.9 L (8.4-10.2) mg/dL Phosphorus 5.20 H (2.5-4.5) mg/dL Assessment and Plan - Patient Problems (1) Acute renal failure (ARF) Current Visit: Yes Status: Acute Qualifiers: Acute renal failure type: with acute tubular necrosis Qualified Code(s): N17.0 - Acute kidney failure with tubular necrosis Plan to address problem: Nephrology consulted, monitor uop q shift, urine electrolytes, dialysis as per renal team. Permacath in place. (2) SIRS (systemic inflammatory response syndrome) Current Visit: Yes Status: Acute Plan to address problem: serial CBC, IV abx, supportive care, (3) Renal cell carcinoma Current Visit: Yes Status: Acute Qualifiers: Laterality: right Qualified Code(s): C64.1 - Malignant neoplasm of right kidney, except renal pelvis Plan to address problem: S/P Right nephrectomy, Urology consulted, supportive care, serial physical exam. (4) Accelerated hypertension Current Visit: Yes Status: Acute Plan to address problem: monitor bp q shift, IV hydralazine prn, continue medical management. (5) GERD (gastroesophageal reflux disease) Current Visit: Yes Status: Acute Qualifiers: Esophagitis presence: with esophagitis Qualified Code(s): K21.0 - Gastro- esophageal reflux disease with esophagitis Plan to address problem: GERD with suspected Gastritis/esophagitis: PPI therapy, supportive care, advance diet as tolerated. (6) DVT prophylaxis Current Visit: Yes Status: Acute
--- NOTE | 2017-07-06 12:54 | Operative Report ---
Operative Report Operative Report: EXAM: ULTRASOUND AND FLUOROSCOPIC GUIDED PLACEMENT OF TUNNELED HEMODIALYSIS CATHETER CLINICAL INDICATION: PATIENT WITH A HISTORY OF CHRONIC RENAL DISEASE STATUS POST NEPHRECTOMY REQUIRING DIALYSIS ACCESS DATE: 07/06/2017 PROCEDURE: Following an explanation of the risks, benefits and alternatives; written informed consent was obtained. The patient was brought to the angiographic suite and placed in supine position on the examination table. Initial ultrasound evaluation of her right neck demonstrated a patent right internal jugular vein. The patient's right neck was prepped and draped in the usual sterile fashion. 1% lidocaine was used for anesthesia. Under ultrasound guidance, the right internal jugular vein was cannulated with a 7 cm 18-gauge needle. A 0.035 guidewire was then advanced through the needle into the IVC under fluoroscopy to document intravenous positioning. The needle was removed. An appropriate catheter exit site was chosen along the lateral right chest wall. 1% lidocaine was used for anesthesia at the catheter exit site and along the tunnel tract. A Bard 19 cm tunneled hemodialysis catheter was then tunneled antegrade from the catheter exit site to the venotomy site. Following serial dilation over the guidewire under fluoroscopy, a 16 Thai peel -away sheath was placed over the guidewire under fluoroscopy and advanced centrally. The trocar and guidewire were removed and the catheter placed through the peel-away sheath and position with the tip in the proximal right atrium. The peel-away sheath was removed. Both ports flushed and aspirated easily and were then locked with sterile saline. The patient tolerated the procedure well. There were no immediate post procedure complications. Fentanyl was used for analgesia. Sedation was not utilized secondary to patient 's not nothing by mouth status. Continuous cardiopulmonary monitoring was utilized. IMPRESSION: 1) Ultrasound and fluoroscopic guided placement of 19 cm tunneled hemodialysis catheter via the right internal jugular vein.
[2017-07-06] MEDS ORDERED: DILAUDID ONE (14:00)
[2017-07-06] MEDS: DILAUDID IV PRN (14:03)
--- NOTE | 2017-07-06 14:51 | Progress Note ---
Assessment and Plan wound clean and dry dressing off will need dialysis spoke with pathology ?? 7 cm necrotic mass ?? benign path being sent out ?? 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 await final path Subjective Date of service: 07/06/17 Principal diagnosis: Renal Mass s/p Radical Right Nephrectomy; SADIA now on Dialysis; Obesity Objective - Constitutional Vitals: Vital Signs - 12hr 07/06/17 07/06/17 07/06/17 03:21 06:39 08:30 Temperature 99.2 F 9.4 F L 98.7 F Pulse Rate 79 75 78 Respiratory 20 18 16 Rate Blood Pressure Blood Pressure 138/71 166/77 150/79 [Left] O2 Sat by Pulse 96 98 98 Oximetry 07/06/17 07/06/17 07/06/17 10:30 11:00 13:15 Temperature 98.9 F Pulse Rate 75 75 78 Respiratory 16 20 23 Rate Blood Pressure 149/76 Blood Pressure 144/64 149/68 [Left] O2 Sat by Pulse 98 98 91 Oximetry 07/06/17 07/06/17 07/06/17 13:27 13:31 13:46 Temperature 98.2 F 98.2 F Pulse Rate 79 82 82 Respiratory 19 21 20 Rate Blood Pressure 141/74 158/79 161/77 Blood Pressure [Left] O2 Sat by Pulse 90 91 91 Oximetry 07/06/17 14:16 Temperature Pulse Rate 82 Respiratory 18 Rate Blood Pressure 160/70 Blood Pressure [Left] O2 Sat by Pulse 91 Oximetry General appearance: Present: no acute distress - Neck Neck: supple - Respiratory Respiratory effort: normal Extremities: no ischemia - Gastrointestinal General gastrointestinal: Present: soft, non-tender - Labs CBC & Chem 7: 07/06/17 05:23 07/06/17 05:23 Labs: Abnormal lab results 07/06/17 07/06/17 Range/Units 05:23 05:23 WBC 12.7 H (4.5-11.0) K/mm3 RBC 3.23 L (3.65-5.03) M/mm3 Hgb 9.5 L (10.1-14.3) gm/dl Hct 29.8 L (30.3-42.9) % RDW 17.1 H (13.2-15.2) % [place] % (Auto) 9.3 H (0.0-7.3) % [place] # 1.2 H (0.0-0.8) K/mm3 Carbon Dioxide 21 L (22-30) mmol/L BUN 43 H (7-17) mg/dL Creatinine 4.4 H (0.7-1.2) mg/dL Calcium 7.9 L (8.4-10.2) mg/dL Phosphorus 5.20 H (2.5-4.5) mg/dL
[2017-07-06] MEDS ORDERED: PROTONIX IV PRN (15:00)
--- NOTE | 2017-07-06 15:21 | Progress Note ---
Assessment and Plan Right Renal Mass: -S/p Right Radical Nephrectomy procedure on 07/04/[address] Agarwal -As per Urology Progressive CKD now ESRD: Right Renal Mass: -s/p Rt IJ TDC today. HD ordered for tommorow. -CM consulted to place patient at [place] dialysis unit. -Renally dose medications -Obtain daily weight -Strict intake and output Essential Hypertension: -will adjust meds as needed Hypothyroidism: -As per primary team Anemia of chronic disease due to CKD: -Transfuse PRN per primary -No epogen due to Renal Mass Hyperlipidemia, chronic: -Statin Plan d/w Family at bedside and Case Management Jose Jade MD [phone] Subjective Date of service: 07/06/17 Principal diagnosis: Renal Mass s/p Radical Right Nephrectomy; SADIA now on Dialysis; Obesity Interval history: s/p Permcath today. Denies CP, SHOB. Family at bedside. Objective - Exam Narrative Exam: General appearance: well-developed, well-nourished, obese EENT: ATNC, PERRL, mucous membranes moist Neck: no JVD, no carotid bruit Respiratory: Present: Clear to Ascultation, Normal Exam. Absent: Rales, Ronchi Cardiology: regular, S1S2, Rt CW TDC intact Gastrointestinal: normoactive bowel sounds, no tenderness, no distended, obese Integumentary: no rash, warm and dry Neurologic: no focal deficit, no asterixis, alert and oriented x3 Musculoskeletal: other (no edema in BLE) Psychiatric: mood/affect appropriate, cooperative - Vital Signs Vital signs: Vital Signs - 12hr 07/06/17 07/06/17 07/06/17 03:21 06:39 08:30 Temperature 99.2 F 9.4 F L 98.7 F Pulse Rate 79 75 78 Respiratory 20 18 16 Rate Blood Pressure Blood Pressure 138/71 166/77 150/79 [Left] O2 Sat by Pulse 96 98 98 Oximetry 07/06/17 07/06/17 07/06/17 10:30 11:00 13:15 Temperature 98.9 F Pulse Rate 75 75 78 Respiratory 16 20 23 Rate Blood Pressure 149/76 Blood Pressure 144/64 149/68 [Left] O2 Sat by Pulse 98 98 91 Oximetry 07/06/17 07/06/17 07/06/17 13:27 13:31 13:46 Temperature 98.2 F 98.2 F Pulse Rate 79 82 82 Respiratory 19 21 20 Rate Blood Pressure 141/74 158/79 161/77 Blood Pressure [Left] O2 Sat by Pulse 90 91 91 Oximetry 07/06/17 14:16 Temperature Pulse Rate 82 Respiratory 18 Rate Blood Pressure 160/70 Blood Pressure [Left] O2 Sat by Pulse 91 Oximetry - Lab 07/06/17 05:23 07/06/17 05:23 Most recent lab results Calcium 7.9 mg/dL (8.4-10.2) L 07/06/17 05:23 Phosphorus 5.20 mg/dL (2.5-4.5) H 07/06/17 05:23 Magnesium 1.90 mg/dL (1.7-2.3) 07/04/17 13:45 Urine Creatinine 163.6 mg/dL (0.1-20.0) H 07/04/17 13:45 Urine Sodium 37 mmol/L 07/04/17 13:45
[2017-07-06] MEDS ORDERED: NACL 0.9% 100 ML IV PRN (16:00)
[2017-07-06 18:01] LABS: Hepatitis A Antibody IgM Non-Reactive (NonReactive); Hepatitis B Core IgM Non-Reactive (NonReactive); Hepatitis B Surface Antigen Non-Reactive (Negative); Hepatitis C Virus Antibody Non-Reactive (NonReactive)
--- NOTE | 2017-07-06 21:12 | XRay Report ---
FINAL REPORT EXAM: XR CHEST 1V AP HISTORY: TB TECHNIQUE: Chest single AP PRIORS: None. FINDINGS: There is right hilar prominence suggest follow-up CT for additional evaluation. There is a right dialysis catheter with catheter tip at the SVC. Cardiac silhouette is prominent size. No confluent pulmonary infiltrate identified. No pleural fluid collection seen. Pulmonary vasculature is unremarkable. IMPRESSION: Right hilar enlargement versus mass. Recommend followup CT for further evaluation Right-sided central venous catheter in satisfactory position
[2017-07-06] MEDS: SODIUM BICARBONATE PO SCH (21:47)
[2017-07-06] MEDS: PROCARDIA XL PO SCH (21:47)
[2017-07-06] MEDS: PRAVACHOL PO SCH (21:47)
[2017-07-07] MEDS: SYNTHROID PO SCH (05:20)
[2017-07-07 06:06] LABS: Basophils % (Auto) 0.2 % (0.0-1.8); Eosinophils # (Auto) 0.2 K/mm3 (0.0-0.4); Eosinophils % (Auto) 1.2 % (0.0-4.3); Hematocrit 28.8 % (30.3-42.9); Hemoglobin 9.2 gm/dl (10.1-14.3); Lymphocytes # (Auto) 3.2 K/mm3 (1.2-5.4); Lymphocytes % (Auto) 24.5 % (13.4-35.0); Mean Corpuscular HGB Conc 32 % (30-34); Mean Corpuscular Hemoglobin 30 pg (28-32); Mean Corpuscular Volume 92 fl (79-97); Monocytes # (Auto) 1.2 K/mm3 (0.0-0.8); Monocytes % (Auto) 9.4 % (0.0-7.3); Platelet Count 178 K/mm3 (140-440); Red Blood Count 3.13 M/mm3 (3.65-5.03); Red Cell Distribution Width 17.2 % (13.2-15.2)
--- NOTE | 2017-07-07 08:53 | Progress Note ---
Assessment and Plan inc distension will get abd series on dialysis Subjective Date of service: 07/07/17 Principal diagnosis: Renal Mass s/p Radical Right Nephrectomy; SADIA now on Dialysis; Obesity Objective - Constitutional Vitals: Vital Signs - 12hr 07/07/17 07/07/17 07/07/17 00:10 04:00 06:24 Temperature 99.3 F 99.0 F Pulse Rate 82 67 74 Respiratory 20 20 Rate Blood Pressure 180/88 Blood Pressure 168/85 [Left] O2 Sat by Pulse 98 98 Oximetry General appearance: Present: no acute distress - Neck Neck: supple - Respiratory Respiratory effort: normal Extremities: no ischemia - Gastrointestinal General gastrointestinal: Present: distended - Labs CBC & Chem 7: 07/07/17 05:26 07/07/17 05:26 Labs: Abnormal lab results 07/07/17 07/07/17 Range/Units 05:26 05:26 WBC 13.1 H (4.5-11.0) K/mm3 RBC 3.13 L (3.65-5.03) M/mm3 Hgb 9.2 L (10.1-14.3) gm/dl Hct 28.8 L (30.3-42.9) % RDW 17.2 H (13.2-15.2) % [place] % (Auto) 9.4 H (0.0-7.3) % [place] # 1.2 H (0.0-0.8) K/mm3 Seg Neutrophils # 8.4 H (1.8-7.7) K/mm3 Carbon Dioxide 20 L (22-30) mmol/L BUN 44 H (7-17) mg/dL Creatinine 4.6 H (0.7-1.2) mg/dL Calcium 8.0 L (8.4-10.2) mg/dL
--- NOTE | 2017-07-07 09:50 | Progress Note ---
Assessment and Plan Right Renal Mass: -S/p Right Radical Nephrectomy procedure on 07/04/[address] Agarwal -As per Urology ESRD Right Renal Mass: -s/p Rt IJ TDC yesterfday. HD today for clearance and volume removal -CM consulted to place patient at [place] dialysis unit. -Renally dose medications -Obtain daily weight -Strict intake and output Essential Hypertension: -will adjust meds as needed -UF with HD Hypothyroidism: -As per primary team Anemia of chronic disease due to CKD: -Transfuse PRN per primary -No epogen due to Renal Mass Hyperlipidemia, chronic: -Statin Plan d/w RN and Case Management Subjective Date of service: 07/07/17 Principal diagnosis: Renal Mass s/p Radical Right Nephrectomy; SADIA now on Dialysis; Obesity Interval history: s/p permcath placement yesterday, tolerated well Objective - Vital Signs Vital signs: Vital Signs - 12hr 07/07/17 07/07/17 07/07/17 00:10 04:00 06:24 Temperature 99.3 F 99.0 F Pulse Rate 82 67 74 Respiratory 20 20 Rate Blood Pressure 180/88 Blood Pressure 168/85 [Left] O2 Sat by Pulse 98 98 Oximetry - General Appearance General appearance: well-developed, well-nourished, obese EENT: ATNC, PERRL, mucous membranes moist Neck: no JVD, no carotid bruit Respiratory: Present: Clear to Ascultation. Absent: Rales, Ronchi Cardiology: regular, S1S2 Gastrointestinal: normoactive bowel sounds, no tenderness, no distended, obese Integumentary: no rash, warm and dry Neurologic: no focal deficit, no asterixis, alert and oriented x3 Musculoskeletal: other (trace pitting edema in BLE) Psychiatric: mood/affect appropriate, cooperative - Lab 07/07/17 05:26 07/07/17 05:26 Most recent lab results Calcium 8.0 mg/dL (8.4-10.2) L 07/07/17 05:26 Phosphorus 4.30 mg/dL (2.5-4.5) 07/07/17 05:26 Magnesium 1.90 mg/dL (1.7-2.3) 07/04/17 13:45 Urine Creatinine 163.6 mg/dL (0.1-20.0) H 07/04/17 13:45 Urine Sodium 37 mmol/L 07/04/17 13:45
[2017-07-07] MEDS ORDERED: DOXERCALCIFEROL 2.5 MCG PO SCH (10:00)
[2017-07-07] MEDS ORDERED: NON-FORMULARY (Simvastatin [Simvastatin] 20 MG) PO SCH (10:00)
[2017-07-07] MEDS ORDERED: NON-FORMULARY (Ranitidine Hcl [Zantac 150 Mg Tab] 150 MG) PO SCH (10:00)
[2017-07-07] MEDS ORDERED: SYNTHROID PO SCH (10:00)
--- NOTE | 2017-07-07 10:27 | Progress Note ---
Assessment and Plan Assessment and plan: SIRS serial CBC, IV abx, supportive care Right Renal Mass -S/p Right Radical Nephrectomy procedure on 07/04/[address] Agarwal -As per Urology ESRD -s/p Rt IJ TDC yesterday. HD today for clearance and volume removal -CM consulted to place patient at [place] dialysis unit. -Renally dose medications -Obtain daily weight -Strict intake and output Essential Hypertension -will adjust meds as needed -UF with HD Hypothyroidism -check TSH Anemia of chronic disease due to CKD -Transfuse PRN for hemoglobin < 7 -No epogen due to Renal Mass Hyperlipidemia -Cont. Statin GERD PPI therapy, supportive care, advance diet as tolerated. History Interval history: No new issues overnight Hospitalist Physical - Constitutional Vitals: Temp Pulse Resp BP Pulse Ox 99.0 F 74 20 168/85 98 07/07/17 06:24 07/07/17 06:24 07/07/17 06:24 07/07/17 06:24 07/07/17 06:24 General appearance: Present: no acute distress - EENT Eyes: Present: PERRL, EOM intact ENT: hearing intact, clear oral mucosa, dentition normal - Neck Neck: Present: supple, normal ROM - Respiratory Respiratory effort: normal Respiratory: bilateral: CTA - Cardiovascular Rhythm: regular Heart Sounds: Present: S1 & S2. Absent: gallop, rub - Extremities Extremities: no ischemia, No edema, Full ROM - Abdominal General gastrointestinal: soft, non-tender, non-distended, normal bowel sounds - Integumentary Integumentary: Present: clear, warm, dry - Neurologic Neurologic: CNII-XII intact, moves all extremities Results - Labs CBC & Chem 7: 07/07/17 05:26 07/07/17 05:26 Labs: Laboratory Last Values WBC 13.1 K/mm3 (4.5-11.0) H 07/07/17 05:26 RBC 3.13 M/mm3 (3.65-5.03) L 07/07/17 05:26 Hgb 9.2 gm/dl (10.1-14.3) L 07/07/17 05:26 Hct 28.8 % (30.3-42.9) L 07/07/17 05:26 MCV 92 fl (79-97) 07/07/17 05:26 MCH 30 pg (28-32) 07/07/17 05:26 MCHC 32 % (30-34) 07/07/17 05:26 RDW 17.2 % (13.2-15.2) H 07/07/17 05:26 Plt Count 178 K/mm3 (140-440) 07/07/17 05:26 Lymph % (Auto) 24.5 % (13.4-35.0) 07/07/17 05:26 [place] % (Auto) 9.4 % (0.0-7.3) H 07/07/17 05:26 Eos % (Auto) 1.2 % (0.0-4.3) 07/07/17 05:26 Baso % (Auto) 0.2 % (0.0-1.8) 07/07/17 05:26 Lymph # 3.2 K/mm3 (1.2-5.4) 07/07/17 05:26 [place] # 1.2 K/mm3 (0.0-0.8) H 07/07/17 05:26 Eos # 0.2 K/mm3 (0.0-0.4) 07/07/17 05:26 Baso # 0.0 K/mm3 (0.0-0.1) 07/07/17 05:26 Add Manual Diff Complete 07/04/17 06:45 Total Counted 100 07/04/17 06:45 Seg Neutrophils % 64.7 % (40.0-70.0) 07/07/17 05:26 Seg Neuts % (Manual) 49.0 % (40.0-70.0) 07/04/17 06:45 Band Neutrophils % 0 % 07/04/17 06:45 Lymphocytes % (Manual) 40.0 % (13.4-35.0) H 07/04/17 06:45 Reactive Lymphs % (Man) 2.0 % 07/04/17 06:45 Monocytes % (Manual) 5.0 % (0.0-7.3) 07/04/17 06:45 Eosinophils % (Manual) 4.0 % (0.0-4.3) 07/04/17 06:45 Basophils % (Manual) 0 % (0.0-1.8) 07/04/17 06:45 Metamyelocytes % 0 % 07/04/17 06:45 Myelocytes % 0 % 07/04/17 06:45 Promyelocytes % 0 % 07/04/17 06:45 Blast Cells % 0 % 07/04/17 06:45 Nucleated RBC % Not Reportable 07/04/17 06:45 Seg Neutrophils # 8.4 K/mm3 (1.8-7.7) H 07/07/17 05:26 Seg Neutrophils # Man 7.5 K/mm3 (1.8-7.7) 07/04/17 06:45 Band Neutrophils # 0.0 K/mm3 07/04/17 06:45 Lymphocytes # (Manual) 6.2 K/mm3 (1.2-5.4) H 07/04/17 06:45 Abs React Lymphs (Man) 0.3 K/mm3 07/04/17 06:45 Monocytes # (Manual) 0.8 K/mm3 (0.0-0.8) 07/04/17 06:45 Eosinophils # (Manual) 0.6 K/mm3 (0.0-0.4) H 07/04/17 06:45 Basophils # (Manual) 0.0 K/mm3 (0.0-0.1) 07/04/17 06:45 Metamyelocytes # 0.0 K/mm3 07/04/17 06:45 Myelocytes # 0.0 K/mm3 07/04/17 06:45 Promyelocytes # 0.0 K/mm3 07/04/17 06:45 Blast Cells # 0.0 K/mm3 07/04/17 06:45 WBC Morphology Not Reportable 07/04/17 06:45 Hypersegmented Neuts Not Reportable 07/04/17 06:45 Hyposegmented Neuts Not Reportable 07/04/17 06:45 Hypogranular Neuts Not Reportable 07/04/17 06:45 Smudge Cells Few 07/04/17 06:45 Toxic Granulation Not Reportable 07/04/17 06:45 Toxic Vacuolation Not Reportable 07/04/17 06:45 Dohle Bodies Not Reportable 07/04/17 06:45 Pelger-Huet Anomaly Not Reportable 07/04/17 06:45 [place] Rods Not Reportable 07/04/17 06:45 Platelet Estimate Cons 07/04/17 06:45 Clumped Platelets Not Reportable 07/04/17 06:45 Plt Clumps, EDTA Not Reportable 07/04/17 06:45 Large Platelets Not Reportable 07/04/17 06:45 Giant Platelets Not Reportable 07/04/17 06:45 Platelet Satelliting Not Reportable 07/04/17 06:45 Plt Morphology Comment Not Reportable 07/04/17 06:45 RBC Morphology Not Reportable 07/04/17 06:45 Dimorphic RBCs Not Reportable 07/04/17 06:45 Polychromasia Not Reportable 07/04/17 06:45 Hypochromasia Not Reportable 07/04/17 06:45 Poikilocytosis Not Reportable 07/04/17 06:45 Anisocytosis 1+ 07/04/17 06:45 Microcytosis Not Reportable 07/04/17 06:45 Macrocytosis Not Reportable 07/04/17 06:45 Spherocytes Not Reportable 07/04/17 06:45 Pappenheimer Bodies Not Reportable 07/04/17 06:45 Sickle Cells Not Reportable 07/04/17 06:45 Target Cells Not Reportable 07/04/17 06:45 Tear Drop Cells Not Reportable 07/04/17 06:45 Ovalocytes Not Reportable 07/04/17 06:45 Helmet Cells Not Reportable 07/04/17 06:45 [place] Bodies Not Reportable 07/04/17 06:45 [place] Rings Not Reportable 07/04/17 06:45 [place] Cells Not Reportable 07/04/17 06:45 Bite Cells Not Reportable 07/04/17 06:45 Crenated Cell Not Reportable 07/04/17 06:45 Elliptocytes Not Reportable 07/04/17 06:45 Acanthocytes (Spur) Not Reportable 07/04/17 06:45 Rouleaux Not Reportable 07/04/17 06:45 Hemoglobin C Crystals Not Reportable 07/04/17 06:45 Schistocytes Not Reportable 07/04/17 06:45 Malaria parasites Not Reportable 07/04/17 06:45 [place] Bodies Not Reportable 07/04/17 06:45 Hem Pathologist Commnt No 07/04/17 06:45 PT 13.6 Sec. (12.2-14.9) 06/24/17 12:28 INR 0.99 (0.87-1.13) 06/24/17 12:28 APTT 32.6 Sec. (24.2-36.6) 06/24/17 12:28 Sodium 142 mmol/L (137-145) 07/07/17 05:26 Potassium 4.9 mmol/L (3.6-5.0) 07/07/17 05:26 Chloride 105.4 mmol/L (98-107) 07/07/17 05:26 Carbon Dioxide 20 mmol/L (22-30) L 07/07/17 05:26 Anion Gap 22 mmol/L 07/07/17 05:26 BUN 44 mg/dL (7-17) H 07/07/17 05:26 Creatinine 4.6 mg/dL (0.7-1.2) H 07/07/17 05:26 Estimated GFR 11 ml/min 07/07/17 05:26 BUN/Creatinine Ratio 10 % 07/07/17 05:26 Glucose 93 mg/dL (65-100) 07/07/17 05:26 Calcium 8.0 mg/dL (8.4-10.2) L 07/07/17 05:26 Phosphorus 4.30 mg/dL (2.5-4.5) 07/07/17 05:26 Magnesium 1.90 mg/dL (1.7-2.3) 07/04/17 13:45 Total Bilirubin 0.40 mg/dL (0.1-1.2) 06/24/17 12:28 AST 16 units/L (5-40) 06/24/17 12:28 ALT 16 units/L (7-56) 06/24/17 12:28 Alkaline Phosphatase 77 units/L (35-129) 06/24/17 12:28 Total Protein 7.4 g/dL (6.3-8.2) 06/24/17 12:28 Albumin 4.0 g/dL (3.9-5) 06/24/17 12:28 Albumin/Globulin Ratio 1.2 % 06/24/17 12:28 PTH Intact 162.0 pg/mL (15-65) H 07/04/17 13:45 Urine Creatinine 163.6 mg/dL (0.1-20.0) H 07/04/17 13:45 Urine Sodium 37 mmol/L 07/04/17 13:45 Hepatitis A IgM Ab Non-reactive (NonReactive) 07/06/17 16:55 Hep Bs Antigen Non-reactive (Negative) 07/06/17 16:55 Hep B Core IgM Ab Non-reactive (NonReactive) 07/06/17 16:55 Hepatitis C Antibody Non-reactive (NonReactive) 07/06/17 16:55 Blood Type A POSITIVE 07/04/17 06:45 Antibody Screen Negative 07/04/17 06:45 Crossmatch See Detail 07/04/17 06:45
--- NOTE | 2017-07-07 10:31 | Progress Note ---
Assessment and Plan Right Renal Mass s/p right radical nephrectomy Chronic kidney disease initiated on dialysis Hypertension Hypothyroidism Normal MPI 03/2017. EF 55-60% on echo 03/2017. Conservative cardiac management. Subjective Date of service: 07/07/17 Principal diagnosis: Renal Mass s/p Radical Right Nephrectomy; SADIA now on Dialysis; Obesity Interval history: Patient has no cardiac complaints. Objective Vital Signs Temp Pulse Resp BP BP Pulse Ox 07/07/17 10:15 76 164/89 07/07/17 10:00 98.0 F 78 16 166/63 07/07/17 06:24 99.0 F 74 20 168/85 98 07/07/17 04:00 67 07/07/17 00:10 99.3 F 82 20 180/88 98 07/06/17 19:54 98.9 F 76 20 174/87 98 07/06/17 17:06 80 168/80 98 07/06/17 17:05 98.7 F 79 18 168/80 98 07/06/17 14:55 97 07/06/17 14:16 82 18 160/70 91 07/06/17 13:46 98.2 F 82 20 161/77 91 07/06/17 13:31 82 21 158/79 91 07/06/17 13:27 98.2 F 79 19 141/74 90 07/06/17 13:15 78 23 149/76 91 07/06/17 11:00 75 20 149/68 98 - Physical Examination General: No Apparent Distress HEENT: Positive: PERRL Cardiac: Positive: Reg Rate and Rhythm - Labs and Meds CBC 07/07/17 Range/Units 05:26 WBC 13.1 H (4.5-11.0) K/mm3 RBC 3.13 L (3.65-5.03) M/mm3 Hgb 9.2 L (10.1-14.3) gm/dl Hct 28.8 L (30.3-42.9) % Plt Count 178 (140-440) K/mm3 Lymph # 3.2 (1.2-5.4) K/mm3 [place] # 1.2 H (0.0-0.8) K/mm3 Eos # 0.2 (0.0-0.4) K/mm3 Baso # 0.0 (0.0-0.1) K/mm3 Comprehensive Metabolic Panel 07/07/17 Range/Units 05:26 Sodium 142 (137-145) mmol/L Potassium 4.9 (3.6-5.0) mmol/L Chloride 105.4 (98-107) mmol/L Carbon Dioxide 20 L (22-30) mmol/L BUN 44 H (7-17) mg/dL Creatinine 4.6 H (0.7-1.2) mg/dL Glucose 93 (65-100) mg/dL Calcium 8.0 L (8.4-10.2) mg/dL
[2017-07-07] MEDS ORDERED: NACL 0.9 (PRIMING MACHINE ONLY DIALYSIS) MC ONE (11:35)
--- NOTE | 2017-07-07 11:59 | Progress Note ---
Assessment and Plan 71 year-old female with initiation of dialysis requiring PermCath placement after nephrectomy. Discussed with patient that she will need to discuss with music theory professor to determine peritoneal dialysis versus hemodialysis if patient needs long-term dialysis. If patient needs follow-up for long-term dialysis access, card for PVS provided. Discussed care of PermCath with patient. Subjective Date of service: 07/07/17 Principal diagnosis: Renal Mass s/p Radical Right Nephrectomy; SADIA now on Dialysis; Obesity Interval history: Right-sided PermCath functioning well. Discussed care with the patient. Discussed follow-up with patient. Objective - Constitutional Vitals: Vital Signs - 12hr 07/07/17 07/07/17 07/07/17 00:10 04:00 06:24 Temperature 99.3 F 99.0 F Pulse Rate 82 67 74 Respiratory 20 20 Rate Blood Pressure 180/88 Blood Pressure 168/85 [Left] O2 Sat by Pulse 98 98 Oximetry 07/07/17 07/07/17 07/07/17 10:00 10:15 10:30 Temperature 98.0 F Pulse Rate 78 76 78 Respiratory 16 Rate Blood Pressure 166/63 164/89 161/96 Blood Pressure [Left] O2 Sat by Pulse Oximetry 07/07/17 07/07/17 10:45 11:00 Temperature Pulse Rate 78 73 Respiratory Rate Blood Pressure 148/91 144/83 Blood Pressure [Left] O2 Sat by Pulse Oximetry General appearance: Present: no acute distress - EENT Eyes: EOM intact ENT: hearing intact - Neck Neck: other (PermCath site clean, dry, and dressing intact.) - Respiratory Respiratory effort: normal - Psychiatric Psychiatric: appropriate mood/affect, cooperative - Labs CBC & Chem 7: 07/07/17 05:26 07/07/17 05:26 Labs: Abnormal lab results 07/07/17 07/07/17 Range/Units 05:26 05:26 WBC 13.1 H (4.5-11.0) K/mm3 RBC 3.13 L (3.65-5.03) M/mm3 Hgb 9.2 L (10.1-14.3) gm/dl Hct 28.8 L (30.3-42.9) % RDW 17.2 H (13.2-15.2) % [place] % (Auto) 9.4 H (0.0-7.3) % [place] # 1.2 H (0.0-0.8) K/mm3 Seg Neutrophils # 8.4 H (1.8-7.7) K/mm3 Carbon Dioxide 20 L (22-30) mmol/L BUN 44 H (7-17) mg/dL Creatinine 4.6 H (0.7-1.2) mg/dL Calcium 8.0 L (8.4-10.2) mg/dL
[2017-07-07] MEDS: HEPARIN IV PRN (12:27)
[2017-07-07] MEDS: SODIUM BICARBONATE PO SCH ×2 (14:08→21:25)
[2017-07-07] MEDS: VITAMIN D3 PO SCH (14:08)
[2017-07-07] MEDS: PEPCID PO SCH (14:09)
[2017-07-07] MEDS: ZYLOPRIM PO SCH (14:09)
[2017-07-07] MEDS: ZESTRIL PO SCH (14:10)
[2017-07-07] MEDS: LOPRESSOR PO SCH (14:12)
[2017-07-07] MEDS: PROCARDIA XL PO SCH ×2 (14:16→21:25)
[2017-07-07] MEDS: DILAUDID IV PRN ×2 (15:03→23:34)
[2017-07-07] MEDS ORDERED: MYLICON PO PRN (15:07)
--- NOTE | 2017-07-07 17:14 | XRay Report ---
FINAL REPORT EXAM: XR ABDOMEN 2V HISTORY: distension TECHNIQUE: Abdomen supine PRIORS: None. FINDINGS: Numerous surgical clips are present within the abdomen. There is some small-bowel distention seen with a distended small bowel loops measuring up to 4.9 centimeters. There is a distended colonic loop seen in the pelvis. No signs for free air. No suspicious calcifications are observed. IMPRESSION: Colonic and small bowel distention. Could reflect obstruction. CT recommended for further evaluation Numerous surgical clips within the abdomen. Please correlate with surgical history
--- NOTE | 2017-07-07 18:32 | Progress Note ---
Assessment and Plan Patient alert, awake. No complaint of chest pain or shortness of breath.O2 saturation 94% on 2 litres O2.Chest xray reported right hilar prominence. Obtain cat scan of chest when patient more stable Complaining some abdominal discomfort.Abdominal xray reported colon and small bowel distention.Followed by the surgery and urology Patient S/P right nephrectomy. - Patient Problems (1) Accelerated hypertension Current Visit: Yes Status: Acute Plan to address problem: Management as per primary care. (2) GERD (gastroesophageal reflux disease) Current Visit: Yes Status: Acute Qualifiers: Esophagitis presence: with esophagitis Qualified Code(s): K21.0 - Gastro- esophageal reflux disease with esophagitis Plan to address problem: Patient is on famotadine. (3) Renal cell carcinoma Current Visit: Yes Status: Acute Qualifiers: Laterality: right Qualified Code(s): C64.1 - Malignant neoplasm of right kidney, except renal pelvis Plan to address problem: Patient S/P right nephrectomy. (4) Hilar enlargement Current Visit: Yes Status: Acute Plan to address problem: Chest xray reported right hilar enlargement. CAT scan of chest when patient more stable. (5) Acute renal failure (ARF) Current Visit: Yes Status: Acute Qualifiers: Acute renal failure type: with acute tubular necrosis Qualified Code(s): N17.0 - Acute kidney failure with tubular necrosis Plan to address problem: Management as per nephrology. Subjective Date of service: 07/07/17 Principal diagnosis: Renal Mass s/p Radical Right Nephrectomy; [facility] now on Dialysis; Obesity Interval history: Patient alert, awake. No complaint of chest pain or shortness of breath.O2 saturation 94% on 2 litres O2.Chest xray reported right hilar prominence. Obtain cat scan of chest when patient more stable. Complaining some abdominal discomfort.Abdominal xray reported colon and small bowel distention.Followed by the surgery and urology. Patient S/P right nephrectomy. Objective Vital Signs - 12hr 07/07/17 07/07/17 07/07/17 07:41 10:00 10:05 Temperature 98.0 F Pulse Rate 75 78 Respiratory 16 Rate Blood Pressure 166/63 O2 Sat by Pulse 97 98 Oximetry 07/07/17 07/07/17 07/07/17 10:15 10:30 10:45 Temperature Pulse Rate 76 78 78 Respiratory Rate Blood Pressure 164/89 161/96 148/91 O2 Sat by Pulse Oximetry 07/07/17 07/07/17 07/07/17 11:00 11:15 11:30 Temperature Pulse Rate 73 74 74 Respiratory Rate Blood Pressure 144/83 155/100 150/99 O2 Sat by Pulse Oximetry 07/07/17 07/07/17 07/07/17 11:45 12:00 12:05 Temperature 98.3 F Pulse Rate 74 72 72 Respiratory 16 Rate Blood Pressure 151/97 152/86 169/89 O2 Sat by Pulse Oximetry 07/07/17 07/07/17 14:12 17:15 Temperature 98.3 F Pulse Rate 72 66 Respiratory 18 Rate Blood Pressure 169/89 156/75 O2 Sat by Pulse 94 Oximetry Constitutional: no acute distress, alert, other (Atraumatic, normocephalic, obese, epidural) Eyes: non-icteric ENT: oropharynx moist, other (mallampatti score 4/4) Neck: supple, no lymphadenopathy, no JVD, other (no thyromegaly) Effort: normal Ascultation: Bilateral: diminished breath sounds Percussion: Bilateral: not dull Cardiovascular: regular rate and rhythm, other (no murmurs, no gallops) Gastrointestinal: normoactive bowel sounds, soft, non-tender, non-distended, other (no palpable HSM) Integumentary: normal Extremities: no cyanosis, no edema, pink and warm, pulses normal, no ischemia or petechiae Neurologic: normal mental status, non-focal exam, pupils equal and round, motor strength normal and Psychiatric: mood appropriate, affect normal CBC and BMP: 07/07/17 05:26 07/07/17 05:26 ABG, PT/INR, D-dimer: PT/INR, D-dimer PT 13.6 Sec. (12.2-14.9) 06/24/17 12:28 INR 0.99 (0.87-1.13) 06/24/17 12:28 Abnormal lab findings: Abnormal Labs 06/24/17 06/24/17 07/04/17 12:28 12:28 06:45 WBC 12.0 H RBC Hgb Hct RDW 17.2 H [place] % (Auto) [place] # Lymphocytes % (Manual) 48.0 H Seg Neutrophils # Lymphocytes # (Manual) 5.8 H Eosinophils # (Manual) 0.5 H Carbon Dioxide BUN 45 H Creatinine 2.9 H Glucose Calcium Phosphorus PTH Intact Urine Creatinine Crossmatch See Detail 07/04/17 07/04/17 07/04/17 06:45 12:08 12:08 WBC 15.4 H 12.9 H RBC 3.31 L Hgb 9.8 L Hct RDW 17.4 H 17.5 H [place] % (Auto) [place] # Lymphocytes % (Manual) 40.0 H Seg Neutrophils # 8.5 H Lymphocytes # (Manual) 6.2 H Eosinophils # (Manual) 0.6 H Carbon Dioxide 18 L BUN 43 H Creatinine 2.9 H Glucose 129 H Calcium 7.8 L Phosphorus PTH Intact Urine Creatinine Crossmatch 07/04/17 07/04/17 07/04/17 13:45 13:45 13:45 WBC RBC Hgb Hct RDW [place] % (Auto) [place] # Lymphocytes % (Manual) Seg Neutrophils # Lymphocytes # (Manual) Eosinophils # (Manual) Carbon Dioxide BUN Creatinine Glucose Calcium Phosphorus 5.30 H PTH Intact 162.0 H Urine Creatinine 163.6 H Crossmatch 07/05/17 07/05/17 07/06/17 05:10 05:10 05:23 WBC 12.0 H 12.7 H RBC 3.36 L 3.23 L Hgb 9.9 L 9.5 L Hct 29.8 L RDW 17.8 H 17.1 H [place] % (Auto) 9.3 H [place] # 1.2 H Lymphocytes % (Manual) Seg Neutrophils # 7.8 H Lymphocytes # (Manual) Eosinophils # (Manual) Carbon Dioxide 20 L BUN 44 H Creatinine 3.9 H Glucose Calcium 7.9 L Phosphorus 5.60 H PTH Intact Urine Creatinine Crossmatch 07/06/17 07/07/17 07/07/17 05:23 05:26 05:26 WBC 13.1 H RBC 3.13 L Hgb 9.2 L Hct 28.8 L RDW 17.2 H [place] % (Auto) 9.4 H [place] # 1.2 H Lymphocytes % (Manual) Seg Neutrophils # 8.4 H Lymphocytes # (Manual) Eosinophils # (Manual) Carbon Dioxide 21 L 20 L BUN 43 H 44 H Creatinine 4.4 H 4.6 H Glucose Calcium 7.9 L 8.0 L Phosphorus 5.20 H PTH Intact Urine Creatinine Crossmatch Chest x-ray: report reviewed (Right hilar enlargement.), image reviewed
[2017-07-07] MEDS: VERSED ONE (20:57)
[2017-07-07] MEDS: PRAVACHOL PO SCH (21:25)
[2017-07-08] MEDS: SYNTHROID PO SCH (05:53)
[2017-07-08 06:30] LABS: Basophils % (Auto) 0.2 % (0.0-1.8); Eosinophils # (Auto) 0.3 K/mm3 (0.0-0.4); Eosinophils % (Auto) 2.1 % (0.0-4.3); Hematocrit 30.4 % (30.3-42.9); Hemoglobin 9.8 gm/dl (10.1-14.3); Lymphocytes # (Auto) 3.8 K/mm3 (1.2-5.4); Lymphocytes % (Auto) 26.3 % (13.4-35.0); Mean Corpuscular HGB Conc 32 % (30-34); Mean Corpuscular Hemoglobin 30 pg (28-32); Mean Corpuscular Volume 92 fl (79-97); Monocytes # (Auto) 1.4 K/mm3 (0.0-0.8); Monocytes % (Auto) 9.3 % (0.0-7.3); Platelet Count 192 K/mm3 (140-440); Red Cell Distribution Width 16.8 % (13.2-15.2)
[2017-07-08 06:36] LABS: Calcium 8.5 mg/dL (8.4-10.2)
--- NOTE | 2017-07-08 08:11 | Progress Note ---
Assessment and Plan above noted path had to be sent out to [place] necrotic mass gi ileus mild will order suppository Subjective Date of service: 07/08/17 Principal diagnosis: Renal Mass s/p Radical Right Nephrectomy; [facility] now on Dialysis; Obesity Objective - Constitutional Vitals: Vital Signs - 12hr 07/07/17 07/07/17 07/08/17 20:57 23:53 00:34 Temperature 99.6 F 99.2 F Pulse Rate 71 71 69 Respiratory 22 22 Rate Blood Pressure 150/75 139/75 O2 Sat by Pulse 95 93 Oximetry 07/08/17 03:53 Temperature 98.9 F Pulse Rate 72 Respiratory 21 Rate Blood Pressure 138/74 O2 Sat by Pulse 92 Oximetry General appearance: Present: no acute distress - Respiratory Respiratory effort: normal - Gastrointestinal General gastrointestinal: Present: soft - Labs CBC & Chem 7: 07/08/17 05:28 07/08/17 05:28 Labs: Abnormal lab results 07/04/17 07/08/17 07/08/17 Range/Units 06:45 05:28 05:28 WBC 14.6 H (4.5-11.0) K/mm3 RBC 3.30 L (3.65-5.03) M/mm3 Hgb 9.8 L (10.1-14.3) gm/dl RDW 16.8 H (13.2-15.2) % [place] % (Auto) 9.3 H (0.0-7.3) % [place] # 1.4 H (0.0-0.8) K/mm3 Seg Neutrophils # 9.1 H (1.8-7.7) K/mm3 BUN 43 H (7-17) mg/dL Creatinine 4.4 H (0.7-1.2) mg/dL Glucose 103 H (65-100) mg/dL Crossmatch See Detail
[2017-07-08] MEDS: PEPCID PO SCH (09:37)
[2017-07-08] MEDS: SODIUM BICARBONATE PO SCH ×2 (09:37→21:55)
[2017-07-08] MEDS: PROCARDIA XL PO SCH ×2 (09:37→21:55)
[2017-07-08] MEDS: ZESTRIL PO SCH (09:37)
[2017-07-08] MEDS: VITAMIN D3 PO SCH (09:37)
[2017-07-08] MEDS: ZYLOPRIM PO SCH (09:38)
[2017-07-08] MEDS: LOPRESSOR PO SCH (09:38)
--- NOTE | 2017-07-08 09:53 | Progress Note ---
Assessment and Plan Right Renal Mass: -S/p Right Radical Nephrectomy procedure on 07/04/[address] Agarwal -As per Urology ESRD Right Renal Mass: -HD again today for clearance and volume removal -HD again tomorrow for outpatient dialysis schedul, can be discharged after HD -Renally dose medications -Obtain daily weight -Strict intake and output constipation/Ileus - on bowel regimen per primary team Essential Hypertension: -will adjust meds as needed -UF with HD Hypothyroidism: -As per primary team Anemia of chronic disease due to CKD: -Transfuse PRN per primary -No epogen due to Renal Mass Hyperlipidemia, chronic: -Statin Plan d/w RN Subjective Date of service: 07/08/17 Principal diagnosis: Renal Mass s/p Radical Right Nephrectomy; [facility] now on Dialysis; Obesity Interval history: tolerated HD well yesterday Objective - Vital Signs Vital signs: Vital Signs - 12hr 07/07/17 07/08/17 07/08/17 23:53 00:34 03:53 Temperature 99.2 F 98.9 F Pulse Rate 71 69 72 Respiratory 22 21 Rate Blood Pressure 139/75 138/74 O2 Sat by Pulse 93 92 Oximetry 07/08/17 09:38 Temperature Pulse Rate 71 Respiratory Rate Blood Pressure 138/69 O2 Sat by Pulse Oximetry - General Appearance General appearance: well-developed, well-nourished, appears stated age EENT: ATNC, PERRL, mucous membranes moist Neck: no JVD, no carotid bruit Respiratory: Present: Clear to Ascultation Cardiology: regular, normal heart rate Gastrointestinal: normoactive bowel sounds, no tenderness, no distended, obese Integumentary: no rash, warm and dry Neurologic: no focal deficit, no asterixis, alert and oriented x3 Musculoskeletal: other (no edema in BLE) Psychiatric: mood/affect appropriate, cooperative - Lab 07/08/17 05:28 07/08/17 05:28 Most recent lab results Calcium 8.5 mg/dL (8.4-10.2) 07/08/17 05:28 Phosphorus 3.50 mg/dL (2.5-4.5) 07/08/17 05:28 Magnesium 1.90 mg/dL (1.7-2.3) 07/04/17 13:45 Urine Creatinine 163.6 mg/dL (0.1-20.0) H 07/04/17 13:45 Urine Sodium 37 mmol/L 07/04/17 13:45
[2017-07-08] MEDS ORDERED: DULCOLAX PR PRN (10:00)
--- NOTE | 2017-07-08 10:51 | Progress Note ---
Assessment and Plan Assessment and plan: Right Renal Mass -S/p Right Radical Nephrectomy procedure on 07/04/[address] Agarwal -As per Urology ESRD -s/p Rt IJ TDC yesterday. HD per Renal -CM consulted to place patient at [facility] dialysis unit. -Renally dose medications -Obtain daily weight -Strict intake and output Essential Hypertension -will adjust meds as needed -UF with HD Hypothyroidism -check TSH Anemia of chronic disease due to CKD -Transfuse PRN for hemoglobin < 7 -No epogen due to Renal Mass Hyperlipidemia -Cont. Statin GERD PPI therapy, supportive care, advance diet as tolerated. Ileus. Cont. suppository. If no improvement, will consider CT A/P History Interval history: No new issues overnight Hospitalist Physical - Constitutional Vitals: Temp Pulse Resp BP Pulse Ox 98.9 F 71 21 138/69 92 07/08/17 03:53 07/08/17 09:38 07/08/17 03:53 07/08/17 09:38 07/08/17 03:53 General appearance: Present: no acute distress - EENT Eyes: Present: PERRL, EOM intact ENT: hearing intact, clear oral mucosa, dentition normal - Neck Neck: Present: supple, normal ROM - Respiratory Respiratory effort: normal Respiratory: bilateral: CTA - Cardiovascular Rhythm: regular Heart Sounds: Present: S1 & S2. Absent: gallop, rub - Extremities Extremities: no ischemia, No edema, Full ROM - Abdominal General gastrointestinal: soft, non-tender, non-distended, normal bowel sounds - Integumentary Integumentary: Present: clear, warm, dry - Neurologic Neurologic: CNII-XII intact, moves all extremities Results - Labs CBC & Chem 7: 07/08/17 05:28 07/08/17 05:28 Labs: Laboratory Last Values WBC 14.6 K/mm3 (4.5-11.0) H 07/08/17 05:28 RBC 3.30 M/mm3 (3.65-5.03) L 07/08/17 05:28 Hgb 9.8 gm/dl (10.1-14.3) L 07/08/17 05:28 Hct 30.4 % (30.3-42.9) 07/08/17 05:28 MCV 92 fl (79-97) 07/08/17 05:28 MCH 30 pg (28-32) 07/08/17 05:28 MCHC 32 % (30-34) 07/08/17 05:28 RDW 16.8 % (13.2-15.2) H 07/08/17 05:28 Plt Count 192 K/mm3 (140-440) 07/08/17 05:28 Lymph % (Auto) 26.3 % (13.4-35.0) 07/08/17 05:28 [place] % (Auto) 9.3 % (0.0-7.3) H 07/08/17 05:28 Eos % (Auto) 2.1 % (0.0-4.3) 07/08/17 05:28 Baso % (Auto) 0.2 % (0.0-1.8) 07/08/17 05:28 Lymph # 3.8 K/mm3 (1.2-5.4) 07/08/17 05:28 [place] # 1.4 K/mm3 (0.0-0.8) H 07/08/17 05:28 Eos # 0.3 K/mm3 (0.0-0.4) 07/08/17 05:28 Baso # 0.0 K/mm3 (0.0-0.1) 07/08/17 05:28 Add Manual Diff Complete 07/04/17 06:45 Total Counted 100 07/04/17 06:45 Seg Neutrophils % 62.1 % (40.0-70.0) 07/08/17 05:28 Seg Neuts % (Manual) 49.0 % (40.0-70.0) 07/04/17 06:45 Band Neutrophils % 0 % 07/04/17 06:45 Lymphocytes % (Manual) 40.0 % (13.4-35.0) H 07/04/17 06:45 Reactive Lymphs % (Man) 2.0 % 07/04/17 06:45 Monocytes % (Manual) 5.0 % (0.0-7.3) 07/04/17 06:45 Eosinophils % (Manual) 4.0 % (0.0-4.3) 07/04/17 06:45 Basophils % (Manual) 0 % (0.0-1.8) 07/04/17 06:45 Metamyelocytes % 0 % 07/04/17 06:45 Myelocytes % 0 % 07/04/17 06:45 Promyelocytes % 0 % 07/04/17 06:45 Blast Cells % 0 % 07/04/17 06:45 Nucleated RBC % Not Reportable 07/04/17 06:45 Seg Neutrophils # 9.1 K/mm3 (1.8-7.7) H 07/08/17 05:28 Seg Neutrophils # Man 7.5 K/mm3 (1.8-7.7) 07/04/17 06:45 Band Neutrophils # 0.0 K/mm3 07/04/17 06:45 Lymphocytes # (Manual) 6.2 K/mm3 (1.2-5.4) H 07/04/17 06:45 Abs React Lymphs (Man) 0.3 K/mm3 07/04/17 06:45 Monocytes # (Manual) 0.8 K/mm3 (0.0-0.8) 07/04/17 06:45 Eosinophils # (Manual) 0.6 K/mm3 (0.0-0.4) H 07/04/17 06:45 Basophils # (Manual) 0.0 K/mm3 (0.0-0.1) 07/04/17 06:45 Metamyelocytes # 0.0 K/mm3 07/04/17 06:45 Myelocytes # 0.0 K/mm3 07/04/17 06:45 Promyelocytes # 0.0 K/mm3 07/04/17 06:45 Blast Cells # 0.0 K/mm3 07/04/17 06:45 WBC Morphology Not Reportable 07/04/17 06:45 Hypersegmented Neuts Not Reportable 07/04/17 06:45 Hyposegmented Neuts Not Reportable 07/04/17 06:45 Hypogranular Neuts Not Reportable 07/04/17 06:45 Smudge Cells Few 07/04/17 06:45 Toxic Granulation Not Reportable 07/04/17 06:45 Toxic Vacuolation Not Reportable 07/04/17 06:45 Dohle Bodies Not Reportable 07/04/17 06:45 Pelger-Huet Anomaly Not Reportable 07/04/17 06:45 [place] Rods Not Reportable 07/04/17 06:45 Platelet Estimate Cons 07/04/17 06:45 Clumped Platelets Not Reportable 07/04/17 06:45 Plt Clumps, EDTA Not Reportable 07/04/17 06:45 Large Platelets Not Reportable 07/04/17 06:45 Giant Platelets Not Reportable 07/04/17 06:45 Platelet Satelliting Not Reportable 07/04/17 06:45 Plt Morphology Comment Not Reportable 07/04/17 06:45 RBC Morphology Not Reportable 07/04/17 06:45 Dimorphic RBCs Not Reportable 07/04/17 06:45 Polychromasia Not Reportable 07/04/17 06:45 Hypochromasia Not Reportable 07/04/17 06:45 Poikilocytosis Not Reportable 07/04/17 06:45 Anisocytosis 1+ 07/04/17 06:45 Microcytosis Not Reportable 07/04/17 06:45 Macrocytosis Not Reportable 07/04/17 06:45 Spherocytes Not Reportable 07/04/17 06:45 Pappenheimer Bodies Not Reportable 07/04/17 06:45 Sickle Cells Not Reportable 07/04/17 06:45 Target Cells Not Reportable 07/04/17 06:45 Tear Drop Cells Not Reportable 07/04/17 06:45 Ovalocytes Not Reportable 07/04/17 06:45 Helmet Cells Not Reportable 07/04/17 06:45 Amaya-Omena Bodies Not Reportable 07/04/17 06:45 Export Rings Not Reportable 07/04/17 06:45 Allison Cells Not Reportable 07/04/17 06:45 Bite Cells Not Reportable 07/04/17 06:45 Crenated Cell Not Reportable 07/04/17 06:45 Elliptocytes Not Reportable 07/04/17 06:45 Acanthocytes (Spur) Not Reportable 07/04/17 06:45 Rouleaux Not Reportable 07/04/17 06:45 Hemoglobin C Crystals Not Reportable 07/04/17 06:45 Schistocytes Not Reportable 07/04/17 06:45 Malaria parasites Not Reportable 07/04/17 06:45 Pancho Bodies Not Reportable 07/04/17 06:45 Hem Pathologist Commnt No 07/04/17 06:45 PT 13.6 Sec. (12.2-14.9) 06/24/17 12:28 INR 0.99 (0.87-1.13) 06/24/17 12:28 APTT 32.6 Sec. (24.2-36.6) 06/24/17 12:28 Sodium 142 mmol/L (137-145) 07/08/17 05:28 Potassium 4.6 mmol/L (3.6-5.0) 07/08/17 05:28 Chloride 104.6 mmol/L (98-107) 07/08/17 05:28 Carbon Dioxide 23 mmol/L (22-30) 07/08/17 05:28 Anion Gap 19 mmol/L 07/08/17 05:28 BUN 43 mg/dL (7-17) H 07/08/17 05:28 Creatinine 4.4 mg/dL (0.7-1.2) H 07/08/17 05:28 Estimated GFR 12 ml/min 07/08/17 05:28 BUN/Creatinine Ratio 10 % 07/08/17 05:28 Glucose 103 mg/dL (65-100) H 07/08/17 05:28 Calcium 8.5 mg/dL (8.4-10.2) 07/08/17 05:28 Phosphorus 3.50 mg/dL (2.5-4.5) 07/08/17 05:28 Magnesium 1.90 mg/dL (1.7-2.3) 07/04/17 13:45 Total Bilirubin 0.40 mg/dL (0.1-1.2) 06/24/17 12:28 AST 16 units/L (5-40) 06/24/17 12:28 ALT 16 units/L (7-56) 06/24/17 12:28 Alkaline Phosphatase 77 units/L (35-129) 06/24/17 12:28 Total Protein 7.4 g/dL (6.3-8.2) 06/24/17 12:28 Albumin 4.0 g/dL (3.9-5) 06/24/17 12:28 Albumin/Globulin Ratio 1.2 % 06/24/17 12:28 PTH Intact 162.0 pg/mL (15-65) H 07/04/17 13:45 Urine Creatinine 163.6 mg/dL (0.1-20.0) H 07/04/17 13:45 Urine Sodium 37 mmol/L 07/04/17 13:45 Hepatitis A IgM Ab Non-reactive (NonReactive) 07/06/17 16:55 Hep Bs Antigen Non-reactive (Negative) 07/06/17 16:55 Hep B Core IgM Ab Non-reactive (NonReactive) 07/06/17 16:55 Hepatitis C Antibody Non-reactive (NonReactive) 07/06/17 16:55 Blood Type A POSITIVE 07/04/17 06:45 Antibody Screen Negative 07/04/17 06:45 Crossmatch See Detail 07/04/17 06:45
--- NOTE | 2017-07-08 11:31 | Progress Note ---
Assessment and Plan Right Renal Mass s/p right radical nephrectomy Chronic kidney disease to ESRD initiated on dialysis Hypertension Hypothyroidism Normal MPI 03/2017. EF 55-60% on echo 03/2017. Conservative cardiac management. Subjective Date of service: 07/08/17 Principal diagnosis: Renal Mass s/p Radical Right Nephrectomy; [facility] now on Dialysis; Obesity Interval history: Patient has no cardiac complaints. Objective Vital Signs Temp Pulse Resp BP Pulse Ox 07/08/17 11:15 66 143/74 07/08/17 11:00 66 136/84 07/08/17 10:45 66 148/79 07/08/17 10:35 99.2 F 70 18 147/99 07/08/17 09:38 71 138/69 07/08/17 03:53 98.9 F 72 21 138/74 92 07/08/17 00:34 99.2 F 69 22 139/75 93 07/07/17 23:53 71 07/07/17 20:57 99.6 F 71 22 150/75 95 07/07/17 17:15 98.3 F 66 18 156/75 94 07/07/17 14:12 72 169/89 07/07/17 12:05 98.3 F 72 16 169/89 07/07/17 12:00 72 152/86 07/07/17 11:45 74 151/97 - Physical Examination General: No Apparent Distress HEENT: Positive: PERRL Cardiac: Positive: Reg Rate and Rhythm Lungs: Positive: Decreased Breath Sounds Neuro: Positive: Grossly Intact - Labs and Meds CBC 07/08/17 Range/Units 05:28 WBC 14.6 H (4.5-11.0) K/mm3 RBC 3.30 L (3.65-5.03) M/mm3 Hgb 9.8 L (10.1-14.3) gm/dl Hct 30.4 (30.3-42.9) % Plt Count 192 (140-440) K/mm3 Lymph # 3.8 (1.2-5.4) K/mm3 [place] # 1.4 H (0.0-0.8) K/mm3 Eos # 0.3 (0.0-0.4) K/mm3 Baso # 0.0 (0.0-0.1) K/mm3 Comprehensive Metabolic Panel 07/08/17 Range/Units 05:28 Sodium 142 (137-145) mmol/L Potassium 4.6 (3.6-5.0) mmol/L Chloride 104.6 (98-107) mmol/L Carbon Dioxide 23 (22-30) mmol/L BUN 43 H (7-17) mg/dL Creatinine 4.4 H (0.7-1.2) mg/dL Glucose 103 H (65-100) mg/dL Calcium 8.5 (8.4-10.2) mg/dL
[2017-07-08] MEDS ORDERED: NACL 0.9 (PRIMING MACHINE ONLY DIALYSIS) MC ONE (11:35)
[2017-07-08] MEDS: HEPARIN IV PRN (15:07)
--- NOTE | 2017-07-08 17:10 | Vascular Lab Report ---
MISCELLANEOUS VESSEL IDENTIFICATION: COMMENTS ON THE SCAN: The right internal jugular vein was identified and under real-time ultrasound guidance was cannulated. IMPRESSION: Successful ultrasound guided vein cannulation.
--- NOTE | 2017-07-08 18:51 | Progress Note ---
Assessment and Plan Patient alert, awake. No complaint of chest pain or shortness of breath.O2 saturation 98% on 3 litres O2.Chest xray reported right hilar prominence. Obtaining cat scan of chest with out contrast. Complaining some abdominal discomfort.Abdominal xray reported colon and small bowel distention.Followed by the surgery and urology. Patient S/P right nephrectomy. - Patient Problems (1) Accelerated hypertension Current Visit: Yes Status: Acute Plan to address problem: Management as per primary care. (2) GERD (gastroesophageal reflux disease) Current Visit: Yes Status: Acute Qualifiers: Esophagitis presence: with esophagitis Qualified Code(s): K21.0 - Gastro- esophageal reflux disease with esophagitis Plan to address problem: Patient is on famotadine. (3) Renal cell carcinoma Current Visit: Yes Status: Acute Qualifiers: Laterality: right Qualified Code(s): C64.1 - Malignant neoplasm of right kidney, except renal pelvis Plan to address problem: Patient S/P right nephrectomy. (4) Hilar enlargement Current Visit: Yes Status: Acute Plan to address problem: Chest xray reported right hilar enlargement. CAT scan of chest with out contrast. (5) Acute renal failure (ARF) Current Visit: Yes Status: Acute Qualifiers: Acute renal failure type: with acute tubular necrosis Qualified Code(s): N17.0 - Acute kidney failure with tubular necrosis Plan to address problem: Management as per nephrology. Subjective Date of service: 07/08/17 Principal diagnosis: Renal Mass s/p Radical Right Nephrectomy; [facility] now on Dialysis; Obesity Interval history: Patient alert, awake. No complaint of chest pain or shortness of breath.O2 saturation 98% on 3 litres O2.Chest xray reported right hilar prominence. Obtaining cat scan of chest with out contrast. Complaining some abdominal discomfort.Abdominal xray reported colon and small bowel distention.Followed by the surgery and urology. Patient S/P right nephrectomy. Objective Vital Signs - 12hr 07/08/17 07/08/17 07/08/17 07:41 09:38 10:00 Temperature Pulse Rate 71 90 Respiratory 18 Rate Blood Pressure 138/69 138/69 O2 Sat by Pulse 98 Oximetry 07/08/17 07/08/17 07/08/17 10:35 10:45 11:00 Temperature 99.2 F Pulse Rate 70 66 66 Respiratory 18 Rate Blood Pressure 147/99 148/79 136/84 O2 Sat by Pulse Oximetry 07/08/17 07/08/17 07/08/17 11:15 11:30 11:45 Temperature Pulse Rate 66 67 66 Respiratory Rate Blood Pressure 143/74 135/74 135/75 O2 Sat by Pulse Oximetry 07/08/17 07/08/17 07/08/17 12:00 12:15 12:30 Temperature Pulse Rate 68 66 66 Respiratory Rate Blood Pressure 133/77 123/75 122/81 O2 Sat by Pulse Oximetry 07/08/17 07/08/17 07/08/17 12:45 13:00 13:15 Temperature Pulse Rate 68 67 63 Respiratory Rate Blood Pressure 119/82 130/70 119/72 O2 Sat by Pulse Oximetry 07/08/17 07/08/17 07/08/17 13:30 13:45 14:00 Temperature 98.6 F Pulse Rate 65 71 66 Respiratory 18 Rate Blood Pressure 130/66 122/81 127/62 O2 Sat by Pulse Oximetry Constitutional: no acute distress, alert, other (Atraumatic, normocephalic, obese, epidural) Eyes: non-icteric ENT: oropharynx moist, other (mallampatti score 4/4) Neck: supple, no lymphadenopathy, no JVD, other (no thyromegaly) Effort: normal Ascultation: Bilateral: diminished breath sounds Percussion: Bilateral: not dull Cardiovascular: regular rate and rhythm, other (no murmurs, no gallops) Gastrointestinal: normoactive bowel sounds, soft, non-tender, non-distended, other (no palpable HSM) Integumentary: normal Extremities: no cyanosis, no edema, pink and warm, pulses normal, no ischemia or petechiae Neurologic: normal mental status, non-focal exam, pupils equal and round, motor strength normal and Psychiatric: mood appropriate, affect normal CBC and BMP: 07/08/17 05:28 07/08/17 05:28 ABG, PT/INR, D-dimer: PT/INR, D-dimer PT 13.6 Sec. (12.2-14.9) 06/24/17 12:28 INR 0.99 (0.87-1.13) 06/24/17 12:28 Abnormal lab findings: Abnormal Labs 06/24/17 06/24/1718 12:28 12:28 06:45 WBC 12.0 H RBC Hgb Hct RDW 17.2 H [place] % (Auto) [place] # Lymphocytes % (Manual) 48.0 H Seg Neutrophils # Lymphocytes # (Manual) 5.8 H Eosinophils # (Manual) 0.5 H Carbon Dioxide BUN 45 H Creatinine 2.9 H Glucose Calcium Phosphorus PTH Intact Urine Creatinine Crossmatch See Detail 07/04/17 07/04/17 07/04/17 06:45 12:08 12:08 WBC 15.4 H 12.9 H RBC 3.31 L Hgb 9.8 L Hct RDW 17.4 H 17.5 H [place] % (Auto) [place] # Lymphocytes % (Manual) 40.0 H Seg Neutrophils # 8.5 H Lymphocytes # (Manual) 6.2 H Eosinophils # (Manual) 0.6 H Carbon Dioxide 18 L BUN 43 H Creatinine 2.9 H Glucose 129 H Calcium 7.8 L Phosphorus PTH Intact Urine Creatinine Crossmatch 07/04/17 07/04/17 07/04/17 13:45 13:45 13:45 WBC RBC Hgb Hct RDW [place] % (Auto) [place] # Lymphocytes % (Manual) Seg Neutrophils # Lymphocytes # (Manual) Eosinophils # (Manual) Carbon Dioxide BUN Creatinine Glucose Calcium Phosphorus 5.30 H PTH Intact 162.0 H Urine Creatinine 163.6 H Crossmatch 07/05/17 07/05/17 07/06/17 05:10 05:10 05:23 WBC 12.0 H 12.7 H RBC 3.36 L 3.23 L Hgb 9.9 L 9.5 L Hct 29.8 L RDW 17.8 H 17.1 H [place] % (Auto) 9.3 H [place] # 1.2 H Lymphocytes % (Manual) Seg Neutrophils # 7.8 H Lymphocytes # (Manual) Eosinophils # (Manual) Carbon Dioxide 20 L BUN 44 H Creatinine 3.9 H Glucose Calcium 7.9 L Phosphorus 5.60 H PTH Intact Urine Creatinine Crossmatch 07/06/17 07/07/17 07/07/17 05:23 05:26 05:26 WBC 13.1 H RBC 3.13 L Hgb 9.2 L Hct 28.8 L RDW 17.2 H [place] % (Auto) 9.4 H [place] # 1.2 H Lymphocytes % (Manual) Seg Neutrophils # 8.4 H Lymphocytes # (Manual) Eosinophils # (Manual) Carbon Dioxide 21 L 20 L BUN 43 H 44 H Creatinine 4.4 H 4.6 H Glucose Calcium 7.9 L 8.0 L Phosphorus 5.20 H PTH Intact Urine Creatinine Crossmatch 07/08/17 07/08/17 05:28 05:28 WBC 14.6 H RBC 3.30 L Hgb 9.8 L Hct RDW 16.8 H [place] % (Auto) 9.3 H [place] # 1.4 H Lymphocytes % (Manual) Seg Neutrophils # 9.1 H Lymphocytes # (Manual) Eosinophils # (Manual) Carbon Dioxide BUN 43 H Creatinine 4.4 H Glucose 103 H Calcium Phosphorus PTH Intact Urine Creatinine Crossmatch
[2017-07-08] MEDS: PRAVACHOL PO SCH (21:55)
[2017-07-09 06:00] LABS: Calcium 8.4 mg/dL (8.4-10.2)
[2017-07-09] MEDS: SYNTHROID PO SCH (06:09)
[2017-07-09 06:41] LABS: Basophils % (Auto) 0.2 % (0.0-1.8); Eosinophils # (Auto) 0.3 K/mm3 (0.0-0.4); Eosinophils % (Auto) 1.8 % (0.0-4.3); Hematocrit 31.2 % (30.3-42.9); Hemoglobin 10.1 gm/dl (10.1-14.3); Lymphocytes # (Auto) 4.5 K/mm3 (1.2-5.4); Lymphocytes % (Auto) 28.3 % (13.4-35.0); Mean Corpuscular HGB Conc 32 % (30-34); Mean Corpuscular Hemoglobin 30 pg (28-32); Mean Corpuscular Volume 91 fl (79-97); Monocytes # (Auto) 1.5 K/mm3 (0.0-0.8); Monocytes % (Auto) 9.1 % (0.0-7.3); Platelet Count 205 K/mm3 (140-440); Red Blood Count 3.41 M/mm3 (3.65-5.03); Red Cell Distribution Width 16.5 % (13.2-15.2)
--- NOTE | 2017-07-09 08:08 | Discharge Summary ---
Providers - Providers Date of Admission: 07/04/17 05:53 Date of discharge: 07/09/17 Attending physician: GREGG JOHNSON 07/04/17 11:05 Consult to Physician [CONS] Urgent Consulting Provider: REVA BELLA Reason For Exam: renal insuff Place consult to:: pawel Notified:: yes Was contact made?: Yes 07/04/17 11:11 Consult to Cardiology [CONS] Urgent Consulting Provider: REYNOLD ISLAS Reason For Exam: ashd 07/05/17 16:07 Consult to Physician [CONS] Urgent Consulting Provider: HARIS LAND Reason For Exam: critical care management Place consult to:: Notified:: yes Phone number called:: given in person Was contact made?: Yes If yes, spoke with:: Time called:: 16:08 07/06/17 11:12 Consult to Physician [CONS] Routine Consulting Provider: LAURA LACKEY Reason For Exam: Manage Chronic Medical Problems Place consult to:: Dr. Lackey Notified:: William MCCLAIN 07/06/17 15:11 Consult to Case Management [CONS] Routine Services Needed at Discharge: Other Notified:: case management Additional Physician Instructions: outpatient dialysis in [facility] Address: [address] [place] [place] [address] Primary care physician: ZULY MCDONALD Hospitalization Reason for admission: renal mass Hospital course: 71 YO Female with Obesity, Right RCC S/P Right Radical Nephrectomy, HTN, GERD admitted to hospitalist service s/p Permacath placement. Pt seen and evaluated in laboratory chemist recovery. Pt denied fever, chills, CP, Palpitations, NVD, productive cough, or recent ill contacts. Pt found to have accelerated hypertension, as well as renal failure and probable need for urgent dialysis. Pt admitted to telemetry. PT. was S/p Right Radical Nephrectomy procedure on by Dr Islas. Pt was seen by nephrology in consultation as well. Vascular placed a RIJ vein HD catheter and underwent HD for clearance and volume removal. CM consulted to arrange for OP HD. Pt. was found to have mild ileus which likely explained leukocytosis. Resolved with suppository. Pt. to have HD today an then d/c. D/C time 33 min Disposition: DC-01 TO HOME OR SELFCARE Time spent for discharge: 33 - Discharge Diagnoses (1) CKD (chronic kidney disease) Status: Acute (2) Accelerated hypertension Status: Acute (3) Acute renal failure (ARF) Status: Acute Qualifiers: Acute renal failure type: with acute tubular necrosis Qualified Code(s): N17.0 - Acute kidney failure with tubular necrosis (4) Renal cell carcinoma Status: Acute Qualifiers: Laterality: right Qualified Code(s): C64.1 - Malignant neoplasm of right kidney, except renal pelvis (5) Ileus Status: Acute Core Measure Documentation - Palliative Care Palliative Care/ Comfort Measures: Not Applicable - Core Measures Any of the following diagnoses?: none Exam - Constitutional Vitals: Temp Pulse Resp BP Pulse Ox 98.2 F 72 18 135/68 94 07/09/17 06:02 07/09/17 06:02 07/09/17 06:02 07/09/17 06:02 07/09/17 06:02 General appearance: Present: no acute distress, well-nourished - EENT Eyes: Present: PERRL ENT: hearing intact, clear oral mucosa - Neck Neck: Present: supple, normal ROM - Respiratory Respiratory effort: normal Respiratory: bilateral: CTA - Cardiovascular Heart Sounds: Present: S1 & S2. Absent: rub, click - Extremities Extremities: pulses symmetrical, No edema Peripheral Pulses: within normal limits - Abdominal General gastrointestinal: Present: soft, non-tender, non-distended, normal bowel sounds Female genitourinary: Present: normal - Integumentary Integumentary: Present: clear, warm, dry - Musculoskeletal Musculoskeletal: gait normal, strength equal bilaterally - Psychiatric Psychiatric: appropriate mood/affect, intact judgment & insight - Neurologic Neurologic: CNII-XII intact, moves all extremities Plan Activity: no restrictions Weight Bearing Status: Full Weight Bearing Diet: renal Follow up with: ZULY MCDONALD DO [Primary Care Provider] - 7 Days PAULETTE MATTHEWS MD [Staff Physician] - 7 Days REYNOLD ISLAS MD [Staff Physician] - 7 Days Prescriptions: Allopurinol [Zyloprim] 100 mg PO DAILY #30 tablet Aspirin [Aspirin BABY CHEW TAB] 81 mg PO DAILY #30 tab.chew Doxercalciferol 2.5 mcg PO DAILY #30 capsule Levothyroxine [Synthroid] 150 mcg PO QAM #30 tablet Metoprolol [Lopressor TAB] 100 mg PO DAILY #30 tablet NIFEdipine [Nifedipine ER] 60 mg PO BID #60 tab.er.24 Ranitidine HCl [Zantac 150 MG TAB] 150 mg PO DAILY #30 tablet Sodium Bicarbonate 650 mg PO BID #60 tablet
--- NOTE | 2017-07-09 08:16 | Progress Note ---
Assessment and Plan Right Renal Mass: -S/p Right Radical Nephrectomy procedure on 07/04/[address] Agarwal -As per Urology ESRD Right Renal Mass: -HD again today, can be discharged from renal standpoint post HD, next tx is scheduled as an outpatient Tuesday in [facility] dialysis -Renally dose medications -Obtain daily weight -Strict intake and output constipation/Ileus - resolved Essential Hypertension: -will adjust meds as needed -UF with HD Hypothyroidism: -As per primary team Anemia of chronic disease due to CKD: -Transfuse PRN per primary -No epogen due to Renal Mass Hyperlipidemia, chronic: -Statin Plan d/w RN Subjective Date of service: 07/09/17 Principal diagnosis: Renal Mass s/p Radical Right Nephrectomy; SADIA now on Dialysis; Obesity Interval history: tolerated HD well yesterday Objective - Vital Signs Vital signs: Vital Signs - 12hr 07/08/17 07/08/17 07/09/17 21:07 23:36 06:02 Temperature 98.3 F 98.2 F Pulse Rate 68 72 Respiratory 18 18 Rate Blood Pressure 141/76 135/68 O2 Sat by Pulse 94 95 94 Oximetry - General Appearance General appearance: well-developed, well-nourished, obese EENT: ATNC, PERRL, mucous membranes moist Neck: no JVD, no carotid bruit Respiratory: Present: Clear to Ascultation. Absent: Rales, Ronchi Cardiology: regular, S1S2 Gastrointestinal: normoactive bowel sounds, no tenderness, no distended, obese Integumentary: no rash, warm and dry Neurologic: no focal deficit, no asterixis, alert and oriented x3 Musculoskeletal: other (no edema in BLE) Psychiatric: mood/affect appropriate, cooperative - Lab 07/09/17 05:31 07/09/17 05:31 Most recent lab results Calcium 8.4 mg/dL (8.4-10.2) 07/09/17 05:31 Phosphorus 3.00 mg/dL (2.5-4.5) 07/09/17 05:31 Magnesium 1.90 mg/dL (1.7-2.3) 07/04/17 13:45 Urine Creatinine 163.6 mg/dL (0.1-20.0) H 07/04/17 13:45 Urine Sodium 37 mmol/L 07/04/17 13:45
[2017-07-09] MEDS: ZYLOPRIM PO SCH (10:58)
[2017-07-09] MEDS: SODIUM BICARBONATE PO SCH (10:59)
[2017-07-09] MEDS: PEPCID PO SCH (10:59)
--- NOTE | 2017-07-09 13:49 | Cat Scan Report ---
FINAL REPORT EXAM: CT CHEST WO CON HISTORY: Right hilar mass TECHNIQUE: CT of chest without IV contrast. Coronal and sagittal reconstructed images provided. PRIORS: None currently available. FINDINGS: Small bilateral pleural effusions. Right is more prominent compared to the left. Linear areas of discoid subsegmental atelectasis adjacent to effusion identified. No pneumothorax. No distinct consolidation. No endobronchial lesions. Low-density lesion in the right breast on series 3:32 measures 12.1 mm and nonspecific. Further evaluation with mammogram recommended. Prominent subcentimeter bilateral axillary lymph nodes identified. Large right axillary lymph node measures 11.4 cm and a large left axillary lymph node measures 10.7 mm. Mildly prominent subcentimeter mediastinal lymph nodes noted. A large mediastinal lymph node measures 8.1 mm. No mass identified. Hilar regions do not demonstrate any mass or adenopathy. Images of the esophagus are unremarkable. Prominent main pulmonary artery suggests pulmonary vascular congestion or hypertension. Mild aortic atherosclerotic disease. No aneurysm. [id number] cardiomegaly. No pericardial effusion. Small hiatal hernia. Images of the stomach are unremarkable. Layering density within the gallbladder suggest stones and or sludge. No wall thickening. Surgical clips in the right pelvis with stranding. Findings may represent postsurgical changes. Small pocket of gas in the right renal fossa near Morison's pouch is nonspecific and could represent postsurgical changes. Findings could be related to a loop bowel. Low-attenuation lesions of the left kidney may represent cysts. Large low-attenuation lesion at the mid to inferior left kidney is only partially imaged. No suspicious osseous lesions on this limited examination of the skeleton. Metastatic disease better evaluated with bone scan. Degenerative changes are present in the spine. Scoliosis. IMPRESSION: Nonspecific lesion in the right breast. Correlation with mammogram is recommended. Small bilateral pleural effusions with adjacent areas of mild discoid subsegmental atelectasis. Prominent bilateral axillary lymph nodes are nonspecific. Mildly prominent mediastinal lymph node noted. No mediastinal mass or hilar mass or hilar adenopathy. Prominent main pulmonary artery suggests pulmonary hypertension or pulmonary vascular congestion. Cardiomegaly. Suspect gallstones and sludge within the gallbladder. No wall thickening or CT evidence for cholecystitis. Probable left renal cyst. Large cystic lesion at the mid to inferior left kidney is partially imaged. Postsurgical changes in the right renal fossa. Surgical artifacts noted. Small pocket of gas in the right renal fossa may be related to postsurgical changes or loop of bowel. If surgery was not recent and there is concern for perforation or infection, further imaging with a CT abdomen with or without contrast may be helpful for further evaluation if clinically indicated.
--- NOTE | 2017-07-09 14:41 | Progress Note ---
Assessment and Plan Renal mass s/p radical right nephrectomy HTN SADIA on CKD Morbid obesity with probable undiagnosed sleep apnea h/o thyroid surgery Hypothyroidism - For vascath placement then dialysis - continue to monitor electrolytes, renal function and hemodynamics closely - discontinue epidural per anesthesiologist - continue renal diet - Antihypertensives if SBP >150 - continue thyroid replacement therapy - Gonzalez catheter for accurate intake and output monitoring - Azotemia per nephrology otherwise - continue to monitor for nocturnal hypoxemia - Sleep apnea precautions - get baseline ABG re: hypercapnia / need to deploy BIPAP - SCDs for VTE prophylaxis - Avoid nephrotoxic agents - PT/OT to evaluate and treat - continue early ambulation interventions - continue supplemental oxygen to keep O2 sats>90% - continue incentive spirometry - GI prophylaxis - continue other care per attending / other consultants - get Hospitalist consult to manage chronic meds and on floor ...she is doing better and hemodynamically stable; she is about to begin hemodialysis and with her co-morbidities is best watched on a monitored bed ...OK to transfer to telemetry ...35' Subjective Date of service: 07/09/17 Principal diagnosis: Renal Mass s/p Radical Right Nephrectomy; SADIA now on Dialysis; Obesity Interval history: Patient seen today for: Renal Mass s/p Radical Right Nephrectomy; SADIA now on Dialysis; Acute hypoxemic Resp Failure; Obesity Seen and examined at bedside; 24 hour events reviewed; nursing and respiratory care staff consulted; no adverse overnight events reported to me; resting peacefully; Objective Vital Signs - 12hr 07/09/17 07/09/17 07/09/17 06:02 08:14 10:00 Temperature 98.2 F 99.0 F Pulse Rate 72 71 Respiratory 18 20 Rate Blood Pressure 135/68 145/73 O2 Sat by Pulse 94 93 94 Oximetry 07/09/17 11:59 Temperature 98.8 F Pulse Rate 63 Respiratory 20 Rate Blood Pressure 124/52 O2 Sat by Pulse 94 Oximetry Constitutional: no acute distress, alert, other (Atraumatic, normocephalic, obese, epidural) Eyes: non-icteric ENT: oropharynx moist, other (mallampatti score 4/4) Neck: supple, no lymphadenopathy, no JVD, other (no thyromegaly) Effort: normal Ascultation: Bilateral: clear, diminished breath sounds Percussion: Bilateral: not dull Cardiovascular: regular rate and rhythm, other (no murmurs, no gallops) Gastrointestinal: normoactive bowel sounds, soft, non-tender, non-distended, other (no palpable HSM) Integumentary: normal Extremities: no cyanosis, no edema, pink and warm, pulses normal, no ischemia or petechiae Neurologic: normal mental status, non-focal exam, pupils equal and round, motor strength normal and Psychiatric: mood appropriate, affect normal CBC and BMP: 07/09/17 05:31 07/09/17 05:31 ABG, PT/INR, D-dimer: PT/INR, D-dimer PT 13.6 Sec. (12.2-14.9) 06/24/17 12:28 INR 0.99 (0.87-1.13) 06/24/17 12:28 Abnormal lab findings: Abnormal Labs 06/24/17 06/24/17 07/04/17 12:28 12:28 06:45 WBC 12.0 H RBC Hgb Hct RDW 17.2 H [place] % (Auto) [place] # Lymphocytes % (Manual) 48.0 H Seg Neutrophils # Lymphocytes # (Manual) 5.8 H Eosinophils # (Manual) 0.5 H Chloride Carbon Dioxide BUN 45 H Creatinine 2.9 H Glucose Calcium Phosphorus PTH Intact Urine Creatinine Crossmatch See Detail 07/04/17 07/04/17 07/04/17 06:45 12:08 12:08 WBC 15.4 H 12.9 H RBC 3.31 L Hgb 9.8 L Hct RDW 17.4 H 17.5 H [place] % (Auto) [place] # Lymphocytes % (Manual) 40.0 H Seg Neutrophils # 8.5 H Lymphocytes # (Manual) 6.2 H Eosinophils # (Manual) 0.6 H Chloride Carbon Dioxide 18 L BUN 43 H Creatinine 2.9 H Glucose 129 H Calcium 7.8 L Phosphorus PTH Intact Urine Creatinine Crossmatch 07/04/17 07/04/17 07/04/17 13:45 13:45 13:45 WBC RBC Hgb Hct RDW [place] % (Auto) [place] # Lymphocytes % (Manual) Seg Neutrophils # Lymphocytes # (Manual) Eosinophils # (Manual) Chloride Carbon Dioxide BUN Creatinine Glucose Calcium Phosphorus 5.30 H PTH Intact 162.0 H Urine Creatinine 163.6 H Crossmatch 07/05/17 07/05/17 07/06/17 05:10 05:10 05:23 WBC 12.0 H 12.7 H RBC 3.36 L 3.23 L Hgb 9.9 L 9.5 L Hct 29.8 L RDW 17.8 H 17.1 H [place] % (Auto) 9.3 H [place] # 1.2 H Lymphocytes % (Manual) Seg Neutrophils # 7.8 H Lymphocytes # (Manual) Eosinophils # (Manual) Chloride Carbon Dioxide 20 L BUN 44 H Creatinine 3.9 H Glucose Calcium 7.9 L Phosphorus 5.60 H PTH Intact Urine Creatinine Crossmatch 07/06/17 07/07/17 07/07/17 05:23 05:26 05:26 WBC 13.1 H RBC 3.13 L Hgb 9.2 L Hct 28.8 L RDW 17.2 H [place] % (Auto) 9.4 H [place] # 1.2 H Lymphocytes % (Manual) Seg Neutrophils # 8.4 H Lymphocytes # (Manual) Eosinophils # (Manual) Chloride Carbon Dioxide 21 L 20 L BUN 43 H 44 H Creatinine 4.4 H 4.6 H Glucose Calcium 7.9 L 8.0 L Phosphorus 5.20 H PTH Intact Urine Creatinine Crossmatch 07/08/17 07/08/17 07/09/17 05:28 05:28 05:31 WBC 14.6 H 16.0 H RBC 3.30 L 3.41 L Hgb 9.8 L Hct RDW 16.8 H 16.5 H [place] % (Auto) 9.3 H 9.1 H [place] # 1.4 H 1.5 H Lymphocytes % (Manual) Seg Neutrophils # 9.1 H 9.7 H Lymphocytes # (Manual) Eosinophils # (Manual) Chloride Carbon Dioxide BUN 43 H Creatinine 4.4 H Glucose 103 H Calcium Phosphorus PTH Intact Urine Creatinine Crossmatch 07/09/17 05:31 WBC RBC Hgb Hct RDW [place] % (Auto) [place] # Lymphocytes % (Manual) Seg Neutrophils # Lymphocytes # (Manual) Eosinophils # (Manual) Chloride 97.0 L Carbon Dioxide BUN 34 H Creatinine 4.0 H Glucose Calcium Phosphorus PTH Intact Urine Creatinine Crossmatch
[2017-07-09] MEDS ORDERED: NACL 0.9 (PRIMING MACHINE ONLY DIALYSIS) MC ONE (16:10)
[2017-07-09 17:20] VITALS: BP 122/77
[2017-07-09] MEDS: HEPARIN IV PRN (17:23)
[2017-07-09] MEDS: PROCARDIA XL PO SCH (17:25)
[2017-07-09] MEDS: ZESTRIL PO SCH (17:26)
[2017-07-09] MEDS: LOPRESSOR PO SCH (17:48)
== END 2017-07-09 20:06 | disposition home or self-care (01) | DRG 656 ==
LOC: 3A 05:53 → CC1 20:34 → 4A 07-06 14:33
PROVIDERS: ADMIT Urology; ATTEND Hospitalist
PROC: 0TT00ZZ Resection of Right Kidney, Open Approach (ICD-10-PCS; principal; 2017-07-04)
PROC: B5191ZA Fluoroscopy of Inferior Vena Cava using Low Osmolar Contrast, Guidance (ICD-10-PCS; 2017-07-06)
PROC: B549ZZA Ultrasonography of Inferior Vena Cava, Guidance (ICD-10-PCS; 2017-07-06)
PROC: 02HV33Z Insertion of Infusion Device into Superior Vena Cava, Percutaneous Approach (ICD-10-PCS; 2017-07-06)
PROC: 0JH63XZ Insertion of Tunneled Vascular Access Device into Chest Subcutaneous Tissue and Fascia, Percutaneous Approach (ICD-10-PCS; 2017-07-07)
PROC: 5A1D70Z Performance of Urinary Filtration, Intermittent, Less than 6 Hours Per Day (ICD-10-PCS; 2017-07-07)
PROC: 5A1D70Z Performance of Urinary Filtration, Intermittent, Less than 6 Hours Per Day (ICD-10-PCS; 2017-07-08)
PROC: 5A1D70Z Performance of Urinary Filtration, Intermittent, Less than 6 Hours Per Day (ICD-10-PCS; 2017-07-09)
DX: C64.1 Malignant neoplasm of right kidney, except renal pelvis (principal); N18.6 End stage renal disease; N17.0 Acute kidney failure with tubular necrosis; J96.01 Acute respiratory failure with hypoxia; R65.10 Systemic inflammatory response syndrome (SIRS) of non-infectious origin without acute organ dysfunction; I12.0 Hypertensive chronic kidney disease with stage 5 chronic kidney disease or end stage renal disease; K56.7 Ileus, unspecified; M10.9 Gout, unspecified; E78.5 Hyperlipidemia, unspecified; N28.1 Cyst of kidney, acquired; E89.0 Postprocedural hypothyroidism; E66.01 Morbid (severe) obesity due to excess calories; K21.9 Gastro-esophageal reflux disease without esophagitis; D63.1 Anemia in chronic kidney disease; K59.00 Constipation, unspecified; Z79.899 Other long term (current) drug therapy; Z85.9 Personal history of malignant neoplasm, unspecified; Z90.710 Acquired absence of both cervix and uterus; Z79.82 Long term (current) use of aspirin; Z99.2 Dependence on renal dialysis; Z88.2 Allergy status to sulfonamides
CPT/HCPCS: 36415; 36558; 36620; 62324; 71045; 71250; 74019; 76937; 77001; 80048; 80053; 80074; 82570; 83735; 83970; 84100; 84300; 84443; 85007; 85025; 85027; 85610; 85730; 86850; 86900; 86901; 86920; 88307; 94760; A9270-GY; C1750; C9113; C9250; J0330; J0690; J1170; J1644; J2250; J2370; J2405; J2704; J2710; J3010; J7030; J7120; P9047